=== PATIENT | female | born 1990 | race Caucasian/White ===

== ENCOUNTER 2016-10-27 13:03 | Emergency (ER) | payer OTHER ==
[~2016-10-27] VITALS: Ht 162.6 cm; Wt 60.2 kg
[~2016-10-27 13:03] MED LIST: RITA20TA PO
[2016-10-27 13:10] VITALS: BP 98/62; PULSE 76; RESP 16; TEMP 98.5; O2SAT 99
[2016-10-27] MEDS ORDERED: MIRA33504 PO (15:49)
== END 2016-10-27 13:30 | disposition left against medical advice (07) ==
LOC: PHED 13:03
DX: R10.9 Unspecified abdominal pain (principal); R53.1 Weakness; Z53.21 Procedure and treatment not carried out due to patient leaving prior to being seen by health care provider
CPT/HCPCS: 84703; 99281

== ENCOUNTER 2016-10-27 14:14 | Emergency (ER) | payer OTHER ==
[~2016-10-27] VITALS: Ht 162.6 cm; Wt 60.5 kg
[2016-10-27 14:24] VITALS: BP 100/68; PULSE 90; RESP 16; TEMP 97.8; O2SAT 96
[2016-10-27] MEDS ORDERED: SODIUM CHLOR 0.9% 1000 ML INJ 1,000 ML IV SCH (14:43)
[2016-10-27] MEDS ORDERED: SODIUM CHLORIDE 0.9% FLUSH 5 ML FLUSH IVF PRN ×2 (14:45→15:00)
[2016-10-27] MEDS ORDERED: ONDANSETRON HCL 4 MG/2 ML VIAL IVP ONE (14:45)
[2016-10-27] MEDS ORDERED: KETOROLAC TROMETHAMINE 30 MG/ML (IVP) VIAL IVP ONE (14:45)
[2016-10-27 14:46] VITALS: RESP 16; O2SAT 97
[2016-10-27] MEDS ORDERED: ALUMINUM/MAGNESIUM/SIMETH 30 ML CUP PO ONE (15:00)
--- NOTE | 2016-10-27 15:14 | PD ---
HPI Chief Complaint: Abdominal Pain Time Seen by Provider: 14:35 Travel History International Travel<30 days: No Contact w/Intl Traveler<30days: No Traveled to known affect area: No History of Present Illness HPI Patient 26-year-old female presents emergency department for history of "abdominal numbness". Patient states that she has a history of binge eating when she gets stressed. She states that this morning she ate several loaves of bread and felt like her stomach was going numb. Denies any nausea denies any abdominal pain to me. She states that "I just like my stomach checked out to make sure I haven't damaged it with my binge eating". Patient states he follows with the psychiatrist and has been taking her Adderall as prescribed for her eating disorder. She has stated that she's taken laxatives in the past to help pass her stool which may constitute Tien of bulimia. She denies any dysuria vaginal bleeding vaginal discharge. Patient was here earlier today left without being seen she did have a test prior to leaving and it was negative. PFS Past Medical History ADD: Yes Anxiety: Yes Depression: Yes Psychiatric: Yes Immunizations Current: Yes Tetanus Vaccination: < 5 Years Influenza Vaccination: No ?: Not LMP: states 1 year ago Past Surgical History Surgical History: No Previous Surgery Social History Alcohol Use: No Tobacco Use: No Substance Use: Yes (states smoke "Pot" occas.) Allergies-Medications (Allergen,Severity, Reaction): Coded Allergies: No Known Allergies (Verified , 10/27/16) Reported Meds & Prescriptions Reported Meds & Active Scripts Active Miralax Powder (Polyethylene Glycol 3350 Powder) 17 Gm Powd 17 Gm PO DAILY 7 Days Mix and dissolve one measuring cap-ful (17 grams) in water or juice. Reported Ritalin (Methylphenidate HCl) 20 Mg Tab 20 Mg PO DAILY Review of Systems Except as stated in HPI: all other systems reviewed are Neg Physical Exam Narrative GENERAL: Well-developed well-nourished no apparent distress. SKIN: Warm and dry. HEAD: Atraumatic. Normocephalic. EYES: Pupils equal and round. No scleral icterus. No injection or drainage. ENT: No nasal bleeding or discharge. Mucous membranes pink and moist. NECK: Trachea midline. No JVD. CARDIOVASCULAR: Regular rate and rhythm. No murmur appreciated. RESPIRATORY: No accessory muscle use. Clear to auscultation. Breath sounds equal bilaterally. GASTROINTESTINAL: Abdomen soft, non-tender, nondistended. Hepatic and splenic margins not palpable. No rebound no percussive tenderness. MUSCULOSKELETAL: No obvious deformities. No clubbing. No cyanosis. No edema. NEUROLOGICAL: Awake and alert. No obvious cranial nerve deficits. Motor grossly within normal limits. Normal speech. PSYCHIATRIC: Appropriate mood and affect; insight and judgment normal. Denies suicidal homicidal ideation. Data Data Last Documented VS Vital Signs Date Time Temp Pulse Resp B/P Pulse Ox O2 Delivery O2 Flow Rate FiO2 10/27/16 16:00 16 10/27/16 14:46 97 Room Air 10/27/16 14:24 97.8 90 100/68 Orders Complete Blood Count With Diff (10/27/16 14:43) Comprehensive Metabolic Panel (10/27/16 14:43) Lipase (10/27/16 14:43) Urinalysis - C+S If Indicated (10/27/16 14:43) Iv Access Insert/Monitor (10/27/16 14:43) Ecg Monitoring (10/27/16 14:43) Oximetry (10/27/16 14:43) Ondansetron Inj (Zofran Inj) (10/27/16 14:45) Sodium Chlor 0.9% 1000 Ml Inj (Ns 1000 M (10/27/16 14:43) Sodium Chloride 0.9% Flush (Ns Flush) (10/27/16 14:45) Abdomen, Kub Only (10/27/16 14:43) Ketorolac Inj (Toradol Inj) (10/27/16 14:45) Sodium Chloride 0.9% Flush (Ns Flush) (10/27/16 15:00) Al-Mag Hy-Si 40-40-4 Mg/Ml Liq (Mag-Al P (10/27/16 15:00) Labs Laboratory Tests Test 10/27/16 10/27/16 15:00 15:15 Urine Color STRAW Urine Turbidity CLEAR Urine pH 6.0 Urine Specific [place] 1.002 Urine Protein NEG mg/dL Urine Glucose (UA) NEG mg/dL Urine Ketones NEG mg/dL Urine Occult Blood SMALL Urine Nitrite NEG Urine Bilirubin NEG Urine Leukocyte Esterase NEG Urine RBC 0-3 /hpf Urine WBC 0-2 /hpf Urine Squamous Epithelial 0-5 /hpf Cells Urine Bacteria FEW /hpf Microscopic Urinalysis Comment CULT NOT INDICATED White Blood Count 6.2 TH/MM3 Red Blood Count 4.01 MIL/MM3 Hemoglobin 13.0 GM/DL Hematocrit 37.9 % Mean Corpuscular Volume 94.4 FL Mean Corpuscular Hemoglobin 32.3 PG Mean Corpuscular Hemoglobin 34.3 % Concent Red Cell Distribution Width 13.2 % Platelet Count 246 TH/MM3 Mean Platelet Volume 8.0 FL Neutrophils (%) (Auto) 55.1 % Lymphocytes (%) (Auto) 35.8 % Monocytes (%) (Auto) 7.3 % Eosinophils (%) (Auto) 0.7 % Basophils (%) (Auto) 1.1 % Neutrophils # (Auto) 3.5 TH/MM3 Lymphocytes # (Auto) 2.2 TH/MM3 Monocytes # (Auto) 0.4 TH/MM3 Eosinophils # (Auto) 0.0 TH/MM3 Basophils # (Auto) 0.1 TH/MM3 CBC Comment DIFF FINAL Differential Comment Sodium Level 145 MEQ/L Potassium Level 3.3 MEQ/L Chloride Level 107 MEQ/L Carbon Dioxide Level 29.7 MEQ/L Anion Gap 8 MEQ/L Blood Urea Nitrogen 6 MG/DL Creatinine 0.59 MG/DL Estimat Glomerular Filtration 125 ML/MIN Rate Random Glucose 91 MG/DL Calcium Level 8.3 MG/DL Total Bilirubin 0.5 MG/DL Aspartate Amino Transf 11 U/L (AST/SGOT) Alanine Aminotransferase 22 U/L (ALT/SGPT) Alkaline Phosphatase 39 U/L Total Protein 7.0 GM/DL Albumin 3.9 GM/DL Lipase 234 U/L [facility] Medical Decision Making Medical Screen Exam Complete: Yes Emergency Medical Condition: Yes Differential Diagnosis Bulimia, eating disorder, binge eating, abdominal pain, , gastritis, gastroenteritis, pancreatitis. Narrative Course Patient was roomed emergency department, she appears well in no apparent distress. She does not endorse any abdominal pain but rather states her abdomen feels numb. 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 I highly doubt this is acute abdomen in this patient. Will pursue basic labs including UA CBC CMP and KUB. Anticipate discharge afterwards. Patient was offered pain medicine in status should rather have something for heartburn. She will be given a GI cocktail. Labs (CBC/CMP/Lipase) reassuring. UPT negative from earlier registration today. Patient KUB shows some increase in stool. She is stable for discharge. Diagnosis Primary Impression: Abdominal discomfort Additional Impression: Constipation Med/Other Pt SpecificInfo: Prescription(s) given Scripts Polyethylene Glycol 3350 Powder (Miralax Powder)17 Gm Powd17 Gm PO DAILY 7 Days Ref 0 Mix and dissolve one measuring cap-ful (17 grams) in water or juice. Prov:Jose Martini MD 10/27/16 Disposition: 01 DISCHARGE HOME Condition: Stable Jose Martini MD Oct 27, 2016 15:14
[2016-10-27 15:35] LABS: BLOOD, URINE SMALL (NEG); GLUCOSE,URINE NEG (NEG); KETONE, URINE NEG (NEG); NITRITE,URINE NEG (NEG)
[2016-10-27 15:39] LABS: AUTOMATED NEUTROPHIL # 3.5 TH/MM3 (1.8-7.7); BASOPHIL # 0.1 TH/MM3 (0-0.2); BASOPHIL % 1.1 % (0.0-2.0); EOSINOPHIL % 0.7 % (0.0-4.0); HEMATOCRIT 37.9 % (35.0-46.0); HEMO FLAGS DIFF FINAL; LYMPH % 35.8 % (9.0-44.0); LYMPHOCYTE # 2.2 TH/MM3 (1.0-4.8); MEAN CELL VOLUME 94.4 FL (80.0-100.0); MEAN CORPUSCULAR HEMOGLOBIN 32.3 PG (27.0-34.0); MEAN CORPUSCULAR HGB CONC 34.3 % (32.0-36.0); MONO % 7.3 % (0.0-8.0); NEUT % 55.1 % (16.0-70.0); PLATELET COUNT 246 TH/MM3 (150-450); RED BLOOD COUNT 4.01 MIL/MM3 (4.00-5.30); RED CELL DISTRIBUTION WIDTH 13.2 % (11.6-17.2); WHITE BLOOD COUNT 6.2 TH/MM3 (4.0-11.0)
[2016-10-27 15:40] LABS: URINE COLOR STRAW (YELLW/STRAW)
[2016-10-27 15:41] LABS: RBC, URINE 0-3 /hpf (0-3); SQUAMOUS EPITHELIAL CELL URINE 0-5 /hpf (0-5); WBC, URINE 0-2 /hpf (0-5)
[2016-10-27 15:42] LABS: BACTERIA, URINE FEW /hpf; COMMENT (UR) CULT NOT INDICATED; CULTURE IF INDICATED CULT NOT INDICATED
--- NOTE | 2016-10-27 15:47 | RADHPO ---
EXAM DATE/TIME: 10/27/2016 14:54 [place] COMPARISON: No previous studies available for comparison. INDICATIONS : Abdominal pain and constipation. MEDICAL HISTORY : None. SURGICAL HISTORY : None. ENCOUNTER: Initial ACUITY: 2 weeks PAIN SCORE: 6/10 LOCATION: Bilateral Abdomen FINDINGS: Supine view of the abdomen was performed. A moderate amount of retained stool is present throughout the colon. The abdominal bowel gas pattern is otherwise normal without evidence of ileus or free air. . No abnormal masses, calcifications, or organomegaly is seen. The osseous structures are unremarka ble. CONCLUSION: Retained stool. No evidence of ileus or obstruction. Esteban Cavazos MD on October 27, 2016 at 15:44 Board Certified Radiologist. This report was verified electronically.
[2016-10-27] MEDS ORDERED: MIRA33504 PO (15:49)
[2016-10-27 15:59] LABS: CHLORIDE 107 MEQ/L (98-107); POTASSIUM 3.3 MEQ/L (3.5-5.1); SODIUM (NA) 145 MEQ/L (136-145)
[2016-10-27 16:09] LABS: ANION GAP 8 MEQ/L (5-15); BICARBONATE 29.7 MEQ/L (21.0-32.0); BLOOD UREA NITROGEN 6 MG/DL (7-18)
[2016-10-27 16:10] LABS: ALT (GPT) 22 U/L (10-53); AST (GOT) 11 U/L (15-37); GLOMERULAR FILTRATION RATE 125 ML/MIN (>89)
[2016-10-27 16:11] LABS: TOTAL BILIRUBIN ADULT 0.5 MG/DL (0.2-1.0)
[2016-10-27 16:12] LABS: ALKALINE PHOSPHATASE 39 U/L (45-117)
== END 2016-10-27 16:49 | disposition home or self-care (01) ==
LOC: PHED 14:14
DX: R19.8 Other specified symptoms and signs involving the digestive system and abdomen (principal); K59.00 Constipation, unspecified; Z86.59 Personal history of other mental and behavioral disorders
CPT/HCPCS: 74000; 80053; 81001; 83690; 85025; 99284

== ENCOUNTER 2017-01-06 09:38 | Inpatient (IN) | payer OTHER ==
[2017-01-06] VITALS (10 sets, daily range): BP systolic 96–110; BP diastolic 58–65; PULSE 66–87; RESP 16–20; TEMP 97–97.5; O2SAT 99–100
[~2017-01-06] VITALS: Ht 167.6 cm; Wt 60.0 kg
[~2017-01-06 09:38] MED LIST changes: +MIRA33504 PO
[2017-01-06] MEDS ORDERED: SODIUM CHLOR 0.9% 1000 ML INJ 1,000 ML IV ONE (10:15)
[2017-01-06] MEDS ORDERED: SODIUM CHLORIDE 0.9% FLUSH 10 ML FLUSH IVF PRN (10:15)
--- NOTE | 2017-01-06 10:27 | PD ---
HPI Chief Complaint: OD/ Ingestion Time Seen by Provider: 10:07 Travel History International Travel<30 days: No Contact w/Intl Traveler<30days: No Traveled to known affect area: No History of Present Illness HPI The patient was seen and examined in the presence of the nurse. This patient took an intentional overdose of lithium and Lamictal this morning. She admits to trying to kill herself. She has history of bipolar disorder. Those are her on prescription meds. She is very altered and cannot provide much in the way of useful history or review of systems. It's unclear how many she took and at what time. It was this morning but I don't know a time. Paramedics brought her in. [facility] Past Medical History Bipolar Disorder: Yes ?: Not Social History Alcohol Use: No Tobacco Use: No Substance Use: No (DENIES) Allergies-Medications (Allergen,Severity, Reaction): Coded Allergies: UNOBTAINABLE (Unverified , 01/06/17) Review of Systems ROS Limitations: Clinical Condition, Altered Mental Status, Uncooperative, Poor Historian Physical Exam Narrative GENERAL: Well-nourished, well-developed patient who is drowsy and confused. SKIN: Focused skin assessment reveals no rash and nodules. Skin is Warm and dry. HEAD: Atraumatic. Normocephalic. EYES: Pupils equal and round. No scleral icterus. No injection or drainage. ENT: No nasal bleeding or discharge. Mucous membranes pink and moist. NECK: Trachea midline. No JVD. CARDIOVASCULAR: Regular rate and rhythm. No murmur appreciated. RESPIRATORY: No accessory muscle use. Clear to auscultation. Breath sounds equal bilaterally. GASTROINTESTINAL: Abdomen soft, non-tender, nondistended. Hepatic and splenic margins not palpable. MUSCULOSKELETAL: No obvious deformities. No clubbing. No cyanosis. No edema. NEUROLOGICAL: Awake but confused and drowsy. No obvious cranial nerve deficits. Motor grossly within normal limits. Slurred speech. PSYCHIATRIC: Depressed mood and flat affect; insight and judgment poor . Data Data Last Documented VS Vital Signs Date Time Temp Pulse Resp B/P Pulse Ox O2 Delivery O2 Flow Rate FiO2 01/06/17 11:52 100 01/06/17 11:51 83 16 96/60 Nasal Cannula 4 01/06/17 09:48 97.5 Orders Electrocardiogram (01/06/17 10:07) Complete Blood Count With Diff (5/19/17 10:07) Comprehensive Metabolic Panel (01/06/17 10:07) Iv Access Insert/Monitor (01/06/17 10:07) Cath For Specimen (01/06/17 10:07) Ecg Monitoring (01/06/17 10:07) Oximetry (01/06/17 10:07) Sodium Chloride 0.9% Flush (Ns Flush) (01/06/17 10:15) Call Poison Control (01/06/17 10:07) Drug Screen, Random Urine (01/06/17 10:07) Alcohol (Ethanol) (01/06/17 10:07) Salicylates (Aspirin) (01/06/17 10:07) Tylenol (Acetaminophen) (01/06/17 10:07) Sodium Chlor 0.9% 1000 Ml Inj (Ns 1000 M (01/06/17 10:15) Dish (Li) (01/06/17 10:10) Lactic Acid (01/06/17 10:31) Creatine Kinase (Cpk) (01/06/17 10:25) Electrocardiogram (01/06/17 ) Dish (Li) (01/06/17 12:14) Admit Order (Ed Use Only) (01/06/17 12:29) Labs Laboratory Tests Test 01/06/17 01/06/17 01/06/17 10:25 10:35 10:45 White Blood Count 7.2 TH/MM3 Red Blood Count 3.84 MIL/MM3 Hemoglobin 12.0 GM/DL Hematocrit 36.0 % Mean Corpuscular Volume 93.8 FL Mean Corpuscular Hemoglobin 31.2 PG Mean Corpuscular Hemoglobin 33.2 % Concent Red Cell Distribution Width 14.2 % Platelet Count 211 TH/MM3 Mean Platelet Volume 8.6 FL Neutrophils (%) (Auto) 48.9 % Lymphocytes (%) (Auto) 40.6 % Monocytes (%) (Auto) 9.7 % Eosinophils (%) (Auto) 0.4 % Basophils (%) (Auto) 0.4 % Neutrophils # (Auto) 3.5 TH/MM3 Lymphocytes # (Auto) 2.9 TH/MM3 Monocytes # (Auto) 0.7 TH/MM3 Eosinophils # (Auto) 0.0 TH/MM3 Basophils # (Auto) 0.0 TH/MM3 CBC Comment DIFF FINAL Differential Comment Sodium Level 140 MEQ/L Potassium Level 3.9 MEQ/L Chloride Level 106 MEQ/L Carbon Dioxide Level 24.2 MEQ/L Anion Gap 10 MEQ/L Blood Urea Nitrogen 13 MG/DL Creatinine 0.67 MG/DL Estimat Glomerular Filtration 76 ML/MIN Rate Random Glucose 126 MG/DL Calcium Level 8.8 MG/DL Total Bilirubin 0.3 MG/DL Aspartate Amino Transf 22 U/L (AST/SGOT) Alanine Aminotransferase 40 U/L (ALT/SGPT) Alkaline Phosphatase 33 U/L Total Creatine Kinase 62 U/L Total Protein 6.8 GM/DL Albumin 4.1 GM/DL Salicylates Level LESS THAN 1.7 MG/DL Acetaminophen Level LESS THAN 2.0 MCG/ML Dish Level 0.3 MEQ/L Ethyl Alcohol Level LESS THAN 3 MG/DL Urine Opiates Screen NEG Urine Barbiturates Screen NEG Urine Amphetamines Screen NEG Urine Benzodiazepines Screen NEG Urine Cocaine Screen NEG Urine Cannabinoids Screen NEG Lactic Acid Level 2.5 mmol/L MDM Medical Decision Making Medical Screen Exam Complete: Yes Emergency Medical Condition: Yes Medical Record Reviewed: Yes Differential Diagnosis Intentional overdose, suicidal ideation, lithium toxicity Narrative Course I have reviewed the patient's electronic medical record. IV placed I gave her 1 L normal saline IV bolus On initial evaluation patient is controlling her airway with normal gag reflex and speaking and has saturation 100% on a nasal cannula 4 L Will require frequent re-evaluations to make sure her airway stays controlled Critically ill with serious overdose on lithium and Lamictal We have spoken with poison control CBC is normal Metabolic profile is normal LFTs are normal is negative Toxicology screen is negative Alcohol level is negative Tylenol is negative Aspirin is negative Dish level is 0.3 on the initial level. I have just sent a second level to make sure it is not rising CK is normal Lactate is elevated at 2.5 I reviewed her EKG which shows sinus rhythm but no ST elevation or ectopy Extended cardiac monitoring reveals sinus rhythm without ectopy Patient critically ill with toxic encephalopathy due to intentional overdose Patient too altered to have useful psychiatric screening at this time I have made multiple rechecks of this patient At this point she is controlling her airway I spoke with both her parents Calls been placed to hospitalist for telemetry admission I request a sitter and they will be needing psychiatry consultation Diagnosis Primary Impression: Toxic encephalopathy Additional Impression: Intentional lithium overdose Qualified Code: T56.892A - Intentional lithium overdose, initial encounter Admitting Information Admitting Physician Requests: Admit Luis Cat MD January 06, 2017 10:27
[2017-01-06 10:52] LABS: AUTOMATED NEUTROPHIL # 3.5 TH/MM3 (1.8-7.7); BASOPHIL % 0.4 % (0.0-2.0); EOSINOPHIL % 0.4 % (0.0-4.0); HEMO FLAGS DIFF FINAL; LYMPH % 40.6 % (9.0-44.0); LYMPHOCYTE # 2.9 TH/MM3 (1.0-4.8); MEAN CELL VOLUME 93.8 FL (80.0-100.0); MEAN CORPUSCULAR HEMOGLOBIN 31.2 PG (27.0-34.0); MEAN CORPUSCULAR HGB CONC 33.2 % (32.0-36.0); MONO % 9.7 % (0.0-8.0); NEUT % 48.9 % (16.0-70.0); PLATELET COUNT 211 TH/MM3 (150-450); RED BLOOD COUNT 3.84 MIL/MM3 (4.00-5.30); RED CELL DISTRIBUTION WIDTH 14.2 % (11.6-17.2); WHITE BLOOD COUNT 7.2 TH/MM3 (4.0-11.0)
[2017-01-06 11:15] LABS: ACETAMINOPHEN LESS THAN 2.0 MCG/ML (10.0-30.0); ALT (GPT) 40 U/L (10-53); ANION GAP 10 MEQ/L (5-15); AST (GOT) 22 U/L (15-37); BICARBONATE 24.2 MEQ/L (21.0-32.0); BLOOD UREA NITROGEN 13 MG/DL (7-18); CHLORIDE 106 MEQ/L (98-107); GLOMERULAR FILTRATION RATE 76 ML/MIN (>89); POTASSIUM 3.9 MEQ/L (3.5-5.1); SODIUM (NA) 140 MEQ/L (136-145)
[2017-01-06 11:16] LABS: ALKALINE PHOSPHATASE 33 U/L (45-117); TOTAL BILIRUBIN ADULT 0.3 MG/DL (0.2-1.0)
[2017-01-06 11:20] LABS: CREATINE KINASE 62 U/L (26-192)
[2017-01-06 11:21] LABS: AMPHETAMINE, URINE NEG (NEG); BARBITURATES, URINE NEG (NEG); COCAINE, URINE NEG (NEG)
[2017-01-06] MEDS ORDERED: LAMO25 PO (16:01)
[2017-01-06] MEDS ORDERED: LITH150C PO (16:01)
[2017-01-06] MEDS: SODIUM CHLOR 0.9% 1000 ML INJ 1,000 ML IV SCH ×2 (16:20→17:43)
--- NOTE | 2017-01-06 17:10 | HHI.HP ---
HPI Service [facility] Hospitalists Primary Care Physician Dr. Ranjit Canales Admission Diagnosis intentional OD Chief Complaint: Intentional OD Travel History International Travel<30 Days: No Contact w/Intl Traveler <30 Da: No Traveled to Known Affected Are: No History of Present Illness Ms. Piper Ricardo is a 26 y/o WF with hx of ADHD and OCD with an associated binge eating disorder according to outpt records. Pt was brought into the ED at [facility] on 01/06/17 for an intentional overdose of lithium and Lamictal this morning. She admitted to the ED physician that she was trying to kill herself. Pt was just recently prescribed the Lamictal 25mg on 01/04, 60 tablets and she reportedly took the entire bottle. Pt reportedly took 2 OTC [place] pills as well. The pts mother was present at the time of the examination as the pt was unable to provide any meaningful history. The pt was very altered and speaking very erratically with pressured and disorganized thinking and repeatedly asking if she had said things out loud which she hadn't said. Pt periodically very tearful. In review of outpt records pt has been having a lot of intrusive thoughts which she reportedly tries to control with eating. Pt had been on Vyvanse for ADHD up until 5 days ago. Pts mother is very concerned as the pt has never expressed symptoms like this in the past. She has reportedly been somewhat depressed and emotional over the last several weeks and this was the reason for the Lamictal prescription. Pts lithium levels were low. Her labs at admission are stable. 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 Pts parents are both [facility] pharmacists Physical Exam Vital Signs Vital Signs Date Time Temp Pulse Resp B/P Pulse Ox O2 Delivery O2 Flow Rate FiO2 01/06/17 14:31 87 20 110/60 100 Nasal Cannula 2 01/06/17 13:11 84 18 99/63 100 Nasal Cannula 4 01/06/17 11:52 100 01/06/17 11:51 83 16 96/60 100 Nasal Cannula 4 01/06/17 11:11 83 16 100/65 100 Nasal Cannula 4 01/06/17 10:33 82 18 108/65 100 Nasal Cannula 4 01/06/17 09:55 88 Nasal Cannula 2 01/06/17 09:48 97.5 69 16 107/65 99 Physical Exam GENERAL: This is a well-nourished, well-developed patient, appears somewhat manic, very pressured and disorganized thoughts and language, very tearful and then will be laughing. HEENT: Atraumatic. Normocephalic. No temporal or scalp tenderness. No scleral icterus. Airway patent. NECK: Trachea midline, supple, nontender. CARDIO: Regular. RESP: CTA bilaterally. No wheezes, rales, or rhonchi. ABD: +BS, soft, non-tender, nondistended. EXT: Extremities without clubbing, cyanosis, or edema. NEURO: Awake and alert. Motor and sensory grossly within normal limits. Normal speech. Laboratory Laboratory Tests Test 01/06/17 01/06/17 01/06/17 01/06/17 10:25 10:35 10:45 12:20 White Blood Count 7.2 Red Blood Count 3.84 Hemoglobin 12.0 Hematocrit 36.0 Mean Corpuscular Volume 93.8 Mean Corpuscular Hemoglobin 31.2 Mean Corpuscular Hemoglobin 33.2 Concent Red Cell Distribution Width 14.2 Platelet Count 211 Mean Platelet Volume 8.6 Neutrophils (%) (Auto) 48.9 Lymphocytes (%) (Auto) 40.6 Monocytes (%) (Auto) 9.7 Eosinophils (%) (Auto) 0.4 Basophils (%) (Auto) 0.4 Neutrophils # (Auto) 3.5 Lymphocytes # (Auto) 2.9 Monocytes # (Auto) 0.7 Eosinophils # (Auto) 0.0 Basophils # (Auto) 0.0 CBC Comment DIFF FINAL Differential Comment Sodium Level 140 Potassium Level 3.9 Chloride Level 106 Carbon Dioxide Level 24.2 Anion Gap 10 Blood Urea Nitrogen 13 Creatinine 0.67 Estimat Glomerular Filtration 76 Rate Random Glucose 126 Calcium Level 8.8 Total Bilirubin 0.3 Aspartate Amino Transf 22 (AST/SGOT) Alanine Aminotransferase 40 (ALT/SGPT) Alkaline Phosphatase 33 Total Creatine Kinase 62 Total Protein 6.8 Albumin 4.1 Salicylates Level LESS THAN 1.7 Acetaminophen Level LESS THAN 2.0 [place] Level 0.3 0.3 Ethyl Alcohol Level LESS THAN 3 Urine Opiates Screen NEG Urine Barbiturates Screen NEG Urine Amphetamines Screen NEG Urine Benzodiazepines Screen NEG Urine Cocaine Screen NEG Urine Cannabinoids Screen NEG Lactic Acid Level 2.5 Result Diagram: 01/06/17 1025 01/06/17 1025 Septic Shock Reassessment Heart: Regular rate and rhythm Lungs: Clear Skin: Warm Peripheral Pulses: Bounding Right Radial Bounding Left Radial Bounding Right Popliteal Bounding Left Popliteal Bounding Right Dorsalis Pedis Bounding Left Dorsalis Pedis Bounding Right Posterior Tibial Bounding Left Posterior Tibial Assessment and Plan Problem List: (1) Drug overdose, intentional Status: Acute Plan: - 26 y/o WF with hx of ADHD and possible previous diagnosis of OCD with an associated binge eating disorder and Bipolar disorder according to outpt records. - Pt was brought into the ED at [facility] on 01/06/17 for an intentional overdose of lithium and Lamictal this morning, she admitted to the ED physician that she was trying to kill herself. - Pt was just recently prescribed the Lamictal 25mg on 01/04, 60 tablets and she reportedly took the entire bottle. Pt reportedly took 2 OTC [place] pills as well. - Pt is being admitted to the medical floor for monitoring and once medically stable she will be taken to the Psych unit. - Labs at admission were stable. - EKG was NSR - [place] level checked twice and is low - UDS is negative. Ethyl alcohol level negative. Salicylated and Tylenol level low. - Psychiatry has been consulted, the case was discussed between Dr. Giron and Dr. Cassidy. - Check beta HCG - Check TSH/Free T4 - IVF - Telemetry - Neuro checks - Repeat labs in AM - Supportive care - DVT prophylaxis Physician Certification 2 Midnight Certification Type: Admission for Inpatient Services Order for Inpatient Services The services are ordered in accordance with Medicare regulations or non- Medicare payer requirements, as applicable. In the case of services not specified as inpatient-only, they are appropriately provided as inpatient services in accordance with the 2-midnight benchmark. Estimated LOS (days): 2 2 days is the estimated time the patient will need to remain in the hospital, assuming treatment plan goals are met and no additional complications. Post-Hospital Plan: Not yet determined Problem Qualifiers (1) Drug overdose, intentional: Qualified Code: T50.902A - Drug overdose, intentional, initial encounter Remedios Perez January 06, 2017 17:10
[2017-01-06 17:46] LABS: BETA HCG QUANT LESS THAN 1 MIU/ML (0-5); FREE T4 1.25 NG/DL (0.76-1.46)
--- NOTE | 2017-01-06 20:54 | EKG ---
Date Performed: 01/06/2017 Time Performed: 09:51:55 PTAGE: 89 years EKG: Sinus rhythm NORMAL ECG INTERPRETATION BASED ON A DEFAULT AGE OF 42 YEARS NO PREVIOUS TRACING DOCTOR: Rashawn Nunes Interpretating Date/Time 02/15/2017 14:16:24
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
[2017-01-07 00:25] VITALS: BP 96/64; PULSE 82; RESP 18; TEMP 96; O2SAT 100
[2017-01-07 03:57] VITALS: BP 92/45; PULSE 74; RESP 18; TEMP 96.3; O2SAT 100
[2017-01-07 05:33] VITALS: BP 93/59
[2017-01-07 07:11] LABS: AUTOMATED NEUTROPHIL # 3.7 TH/MM3 (1.8-7.7); BASOPHIL % 0.6 % (0.0-2.0); EOSINOPHIL # 0.2 TH/MM3 (0-0.4); EOSINOPHIL % 2.9 % (0.0-4.0); HEMATOCRIT 33.6 % (35.0-46.0); HEMO FLAGS DIFF FINAL; LYMPH % 32.5 % (9.0-44.0); LYMPHOCYTE # 2.1 TH/MM3 (1.0-4.8); MEAN CELL VOLUME 94.2 FL (80.0-100.0); MEAN CORPUSCULAR HEMOGLOBIN 32.8 PG (27.0-34.0); MEAN CORPUSCULAR HGB CONC 34.9 % (32.0-36.0); MONO % 7.2 % (0.0-8.0); NEUT % 56.8 % (16.0-70.0); PLATELET COUNT 182 TH/MM3 (150-450); RED BLOOD COUNT 3.57 MIL/MM3 (4.00-5.30); RED CELL DISTRIBUTION WIDTH 14.5 % (11.6-17.2); WHITE BLOOD COUNT 6.5 TH/MM3 (4.0-11.0)
[2017-01-07 07:36] LABS: ALKALINE PHOSPHATASE 34 U/L (45-117); ALT (GPT) 28 U/L (10-53); ANION GAP 7 MEQ/L (5-15); AST (GOT) 13 U/L (15-37); BICARBONATE 23.6 MEQ/L (21.0-32.0); BLOOD UREA NITROGEN 5 MG/DL (7-18); CHLORIDE 113 MEQ/L (98-107); GLOMERULAR FILTRATION RATE 125 ML/MIN (>89); SODIUM (NA) 144 MEQ/L (136-145); TOTAL BILIRUBIN ADULT 0.3 MG/DL (0.2-1.0)
[2017-01-07 08:00] VITALS: BP 91/54; PULSE 84; RESP 16; TEMP 97.2; O2SAT 100
--- NOTE | 2017-01-07 09:35 | HHI.DCPOC ---
Discharge Care Plan Diagnosis: (1) Drug overdose, intentional (2) Toxic encephalopathy Goals to Promote Your Health * To prevent worsening of your condition and complications * To maintain your health at the optimal level Directions to Meet Your Goals Take your medications as prescribed Follow your dietary instruction Follow activity as directed Keep your appointments as scheduled Take your immunizations and boosters as scheduled If your symptoms worsen call your PCP, if no PCP go to Urgent Care Center or Emergency Room Smoking is Dangerous to Your Health. Avoid second hand smoke Call the 24-hour hour crisis hotline for domestic abuse at Chidi Cassidy MD January 07, 2017 09:35
[2017-01-07 09:41] VITALS: PULSE 85
--- NOTE | 2017-01-07 09:46 | HHI.PR ---
Subjective Remarks emotionally labile...crying the laughing. hungry. cooperative. Objective Vitals heent neg lung cta abd s/nt ext no edema nystagmus Vital Signs Date Time Temp Pulse Resp B/P Pulse Ox O2 Delivery O2 Flow Rate FiO2 01/07/17 08:00 97.2 84 16 91/54 100 01/07/17 05:33 93/59 01/07/17 03:57 96.3 74 18 92/45 100 01/07/17 00:25 96.0 82 18 96/64 100 01/06/17 20:15 66 01/06/17 20:14 97.1 71 18 102/58 100 01/06/17 17:00 97.0 77 18 104/59 100 01/06/17 14:31 87 20 110/60 100 Nasal Cannula 2 01/06/17 13:11 84 18 99/63 100 Nasal Cannula 4 01/06/17 11:52 100 01/06/17 11:51 83 16 96/60 100 Nasal Cannula 4 01/06/17 11:11 83 16 100/65 100 Nasal Cannula 4 01/06/17 10:33 82 18 108/65 100 Nasal Cannula 4 01/06/17 09:55 88 Nasal Cannula 2 01/06/17 09:48 97.5 69 16 107/65 99 01/06/17 01/06/17 01/07/17 15:00 23:00 07:00 Intake Total 800 ml 860 ml Balance 800 ml 860 ml Intake Oral 60 ml IV Total 800 ml 800 ml # Voids 1 Result Diagram: 01/07/17 0641 01/07/17 0641 A/P Problem List: (1) Drug overdose, intentional Status: Acute Plan: - 26 y/o WF with hx of ADHD and possible previous diagnosis of OCD with an associated binge eating disorder and Bipolar disorder according to outpt records. - Pt was brought into the ED at [facility] on 01/06/17 for an intentional overdose of lithium and Lamictal this morning, she admitted to the ED physician that she was trying to kill herself. - Pt was just recently prescribed the Lamictal 25mg on 01/04, 60 tablets and she reportedly took the entire bottle. Pt reportedly took 2 OTC [place] pills as well. - Pt is being admitted to the medical floor for monitoring and once medically stable she will be taken to the Psych unit. - Labs at admission were stable. - EKG was NSR - [place] level checked twice and is low - UDS is negative. Ethyl alcohol level negative. Salicylated and Tylenol level low. - Psychiatry has been consulted, the case was discussed between Dr. Giron and Dr. Cassidy. - Check beta HCG - Check TSH/Free T4...nml - IVF - Telemetry nsr overnight. - Neuro checks stable improving - Repeat labs stable d/c to psych unit today. medically stable Problem Qualifiers (1) Drug overdose, intentional: Qualified Code: T50.902A - Drug overdose, intentional, initial encounter Chidi Cassidy MD January 07, 2017 09:46
--- NOTE | 2017-01-07 16:04 | EKG ---
Date Performed: 01/06/2017 Time Performed: 12:32:52 PTAGE: 89 years EKG: Sinus rhythm BORDERLINE RIGHT AXIS DEVIATION LOW QRS VOLTAGE IN PRECORDIAL LEADS BORDERLINE ECG PREVIOUS TRACING 01/06/2017 @ 09.51.55 DOCTOR: Mignon Melchor Interpretating Date/Time 02/15/2017 14:16:00
== END 2017-01-07 12:11 | DRG 917 ==
LOC: NEPE 09:38 → NEDA 12:33 → EDBD 12:33 → MERGE 12:33 → HOCB 16:46
PROVIDERS: ADMIT Hospitalist; ATTEND Hospitalist
DX: T56.892A Toxic effect of other metals, intentional self-harm, initial encounter (principal); G92 Toxic encephalopathy; F31.9 Bipolar disorder, unspecified; F42.9 Obsessive-compulsive disorder, unspecified; F90.9 Attention-deficit hyperactivity disorder, unspecified type; T42.6X2A Poisoning by other antiepileptic and sedative-hypnotic drugs, intentional self-harm, initial encounter; Y92.9 Unspecified place or not applicable
CPT/HCPCS: 80053; 80178; 80307; 82550; 83605; 84439; 84443; 84702; 85025; 93005; J7030

== ENCOUNTER 2017-01-07 12:42 | Inpatient (IN) | payer OTHER ==
[~2017-01-07] VITALS: Ht 162.6 cm; Wt 68.8 kg
[~2017-01-07 12:42] MED LIST changes: +LAMO25 PO; +LITH150C PO
[2017-01-07 14:08] VITALS: BP 103/55; PULSE 110; RESP 18; TEMP 97; O2SAT 100
[2017-01-07 16:35] VITALS: BP 140/73; PULSE 83; RESP 18; TEMP 98.4; O2SAT 100
--- NOTE | 2017-01-07 17:02 | MH ---
cc: MELANIE SKINNER DATE OF ADMISSION 01/07/2017 HISTORY This 26-year-old white female was initially admitted to the medical floor through the emergency room because of overdose on Lamictal and eyun-kos-uuiayxc lithium. She was seen by me in consultation per request of Dr. Cassidy. Please refer to my consultation report for details. She was transferred to the psychiatric unit once medically stabilized. Prior to evaluation case was discussed with the nursing staff who indicated since admission she has been seclusive, very labile, i.e. laughing and then bursting into tears. She has not exhibited any aggressive or self-destructive behavior nor has she made any threats of harm to self or others. At the time of this evaluation, she was not as sedated as when I saw her last night. She was able to provide more information. She acknowledged taking more than the prescribed dose of Vyvanse, i.e. 80 milligrams a day instead of the 40 milligrams per day prescribed to her. She mentioned that it happened on "a couple of occasions." She mentioned that she has been hearing "voices" since she broke up with her last boyfriend about a year ago. She mentioned the voices tell her to "eat poop". She again was vague about the circumstances leading to the suicide attempt, "I do not remember, I guess I was upset about something." When asked as to how she felt about the overdose she hesitated and responded "not too good." She denied any previous suicide attempts. She repeatedly requested that she be given medicine to stabilize her and to "get rid of the voices." I discussed my diagnostic impression and treatment approach at length with her and she was receptive. PAST PSYCHIATRIC HISTORY/PAST MEDICAL HISTORY/FAMILY HISTORY/PERSONAL HISTORY Please refer to my consultation note for details. CLINICAL OBSERVATION/MENTAL STATUS EXAMINATION Well-groomed might female who was more communicative today compared to last night. She remains quite labile. Her responses to questions were relevant. No overt anger or hostility was noticed. No bizarre behavior or mannerisms were noticed. Her speech was soft, monotonous. Her affect was labile, predominantly depressed. Subjectively she described her mood as "I have been feeling down, I go up and down." Thought processes did not reveal any looseness of association or flight of ideas. No manisha delusions were noticed. However, she acknowledged experiencing auditory hallucinations telling her to "eat poop." However, she denied any intention to act on them. She denied any suicidal or homicidal ideations or intent at this time. She denied any previous suicide attempts. Cognitively, she was alert, oriented to time, place, person and situation. Memory, immediate she could do 5 digits forward, 4 digits backward. Recent, she could recall 2/3 objects after 5 minutes. Remote, she could recall president to President Brett Aguirre. Her attention and concentration was impaired. She could do serial sevens up to 86. Her judgment and insight was felt to be fair. DIAGNOSTIC IMPRESSION [place] I: Bipolar affective disorder, mixed. Status post overdose Lamictal and lithium. Obsessive compulsive disorder by history. Bulimia by history. Attention deficit hyperactivity disorder by history. 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 [place] III: No diagnosis. [place] IV: Severity of psychosocial stressors moderate, i.e. stress related to college, breakup with boyfriend. [place] V: Current GAF score 30. FORMULATION AND TREATMENT PLAN Please refer to my consultation report for details. She will be started on Depakote and Risperdal. The risks, benefits and alternatives were explained to her and she understood and was supportive. Simultaneously, she will be involved in individual psychotherapy primarily focusing on current psychosocial stressors. She will participate in various other unit activities i.e. occupational therapy, recreational therapy, group therapy. HER IDENTIFIED PROBLEMS 1. Mood swings. 2. Psychosis NOS. 3. Obsessive-compulsive behavior. ASSETS 1. She is verbal. 2. Reasonably good physical health. Her estimated length of stay is 5-7 days. MD ERNA Machuca/SPENCER /4:28 PM /4:39 PM
[2017-01-07] MEDS: DIVALPROEX SODIUM E.R. 500 MG TAB PO SCH (20:36)
[2017-01-08 05:59] VITALS: BP 93/52; PULSE 83; RESP 16; TEMP 96.3; O2SAT 96
[2017-01-08] MEDS ORDERED: PNEUMOCOCCAL POLYVALENT INJ 25 MCG/0.5 ML SYR IM ONE (10:00)
[2017-01-08] MEDS ORDERED: INFLUENZA VIRUS VACCINE (QUADRIVALENT) 0.5 ML SYR IM ONE (10:00)
[2017-01-08] MEDS: DIVALPROEX SODIUM E.R. 500 MG TAB PO SCH (20:20)
[2017-01-08 21:21] VITALS: BP 92/54; PULSE 93; RESP 18; TEMP 97; O2SAT 98
[2017-01-09 06:01] VITALS: BP 91/51; PULSE 85; RESP 18; TEMP 97.8; O2SAT 98
[2017-01-09] MEDS: DIVALPROEX SODIUM E.R. 500 MG TAB PO SCH ×2 (21:21→22:01)
[2017-01-09 22:02] VITALS: BP 101/50; PULSE 89; RESP 18; TEMP 98.7; O2SAT 98
[2017-01-10] MEDS: TEMAZEPAM 15 MG CAP PO PRN ×2 (00:44→21:00)
[2017-01-10 05:43] VITALS: BP 102/55; PULSE 97; RESP 18; TEMP 97.4; O2SAT 99
[2017-01-10 18:03] VITALS: BP 95/52; PULSE 102; RESP 17; TEMP 98.2; O2SAT 99
[2017-01-11] MEDS: DIVALPROEX SODIUM E.R. 500 MG TAB PO SCH (01:07)
[2017-01-11 05:11] VITALS: BP 104/50; PULSE 86; RESP 18; TEMP 98.4; O2SAT 100
[2017-01-11 07:46] LABS: BASOPHIL # 0.1 TH/MM3 (0-0.2); BASOPHIL % 0.9 % (0.0-2.0); EOSINOPHIL # 0.3 TH/MM3 (0-0.4); EOSINOPHIL % 5.5 % (0.0-4.0); HEMATOCRIT 38.1 % (35.0-46.0); HEMO FLAGS DIFF FINAL; LYMPH % 36.4 % (9.0-44.0); LYMPHOCYTE # 2.2 TH/MM3 (1.0-4.8); MEAN CELL VOLUME 94.5 FL (80.0-100.0); MEAN CORPUSCULAR HEMOGLOBIN 31.7 PG (27.0-34.0); MEAN CORPUSCULAR HGB CONC 33.5 % (32.0-36.0); MONO % 7.9 % (0.0-8.0); NEUT % 49.3 % (16.0-70.0); PLATELET COUNT 172 TH/MM3 (150-450); RED BLOOD COUNT 4.03 MIL/MM3 (4.00-5.30); RED CELL DISTRIBUTION WIDTH 14.4 % (11.6-17.2); WHITE BLOOD COUNT 6.1 TH/MM3 (4.0-11.0)
[2017-01-11 08:24] LABS: ALT (GPT) 38 U/L (10-53); ANION GAP 7 MEQ/L (5-15); BICARBONATE 32.6 MEQ/L (21.0-32.0); BLOOD UREA NITROGEN 14 MG/DL (7-18); CHLORIDE 102 MEQ/L (98-107); GLOMERULAR FILTRATION RATE 116 ML/MIN (>89); POTASSIUM 4.4 MEQ/L (3.5-5.1); SODIUM (NA) 142 MEQ/L (136-145)
[2017-01-11 08:34] LABS: ALKALINE PHOSPHATASE 41 U/L (45-117); AST (GOT) 16 U/L (15-37); TOTAL BILIRUBIN ADULT 0.3 MG/DL (0.2-1.0)
[2017-01-11 18:15] VITALS: BP 104/57; PULSE 98; RESP 18; TEMP 97.5; O2SAT 98
[2017-01-11] MEDS: TEMAZEPAM 15 MG CAP PO PRN (21:29)
[2017-01-12 05:30] VITALS: BP 104/52; PULSE 70; RESP 16; TEMP 96.8; O2SAT 98
[2017-01-12 18:00] VITALS: BP 100/62; PULSE 78; RESP 18; TEMP 97; O2SAT 98
[2017-01-12] MEDS: TEMAZEPAM 15 MG CAP PO PRN (21:19)
[2017-01-12] MEDS: DIVALPROEX SODIUM E.R. 500 MG TAB PO SCH (21:19)
[2017-01-13 06:27] VITALS: BP 89/51; PULSE 91; RESP 16; TEMP 97; O2SAT 97
[2017-01-13] MEDS ORDERED: REST15CA PO (12:28)
[2017-01-13] MEDS ORDERED: RISP0.5T28 PO (12:28)
[2017-01-13] MEDS ORDERED: DEPA500T3 PO (12:28)
--- NOTE | 2017-01-13 13:11 | MD ---
cc: MELANIE SKINNER M.D. ADMISSION DATE: 01/07/2017 DISCHARGE DATE: 01/13/2017 [place] Visit Search.Discharge Date ADMISSION DIAGNOSIS [place] I: Bipolar affective disorder mixed. Status post overdose on Lamictal and lithium. Obsessive-compulsive disorder by history. Bulimia by history. Attention deficit hyperactive disorder by history. 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 [place] III: No diagnosis. [place] IV: Severity of psychosocial stressors moderate, i.e., stress related to college, breakup with boyfriend. [place] V: Current GAF score 30. DISCHARGE DIAGNOSES [place] I: Bipolar affective disorder mixed. Status post overdose on Lamictal and lithium. Obsessive-compulsive disorder by history. Bulimia by history. Attention deficit hyperactive disorder by history. 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 [place] III: No diagnosis. [place] IV: Severity of psychosocial stressors moderate, i.e., stress related to college, breakup with boyfriend. [place] V: Current GAF score 60. BRIEF HISTORY This 26-year-old white female was initially admitted to the medical floor because of overdose on Lamictal and lqgr-grx-qffcvfn lithium. She was seen by me in consultation per the request of Dr. Cassidy and after she was medically stabilized she was transferred to the psychiatric unit under my service. Please refer to my initial consult for details. LABORATORY DATA CBC with differential unremarkable. CMP on 01/11/2017 was unremarkable; specifically her liver enzymes were normal. Plasma valproic acid on 01/11/2017 was 61. HOSPITAL COURSE When initially evaluated she was very labile, i.e., laughing and then bursting into tears and displayed circumstantiality. In subsequent individual psychotherapy session she acknowledged experiencing "voices" mostly centering on food. She certainly did not exhibit any behavior indicative of her experiencing auditory hallucinations and as such the validity of these was somewhat questionable. Throughout this hospital stay she overemphasized her "food addiction." She was not observed binging or purging by the staff. It appears that she tends to deal with any psychosocial stressor by engaging in overeating. She was encouraged to attend Over Eaters Anonymous support group after discharge and to work on this particular issue with her outpatient therapist. Should this not help then consideration could be given to admission to an eating disorder unit. To stabilize her mood and to help her with so-called "voices" she was started on Depakote and Risperdal. The lability and hyperverbosity responded well to this combination. She complained of insomnia and as such Restoril was added. She gradually began to gain insight in regards to identified issues especially the suicide attempt. She recognized it was a "selfish act." I had a meeting with both parents and invited them to the treatment team meeting which her father was able to attend. The patient's condition and discharge plans were reviewed at length and they were all very supportive of it. Specifically, the patient wanted to be discharged as according to her being around other people eating triggered obsessive thoughts about food. Throughout this hospital stay she did not exhibit any aggressive or self-destructive behavior. As such the treatment team felt she had received optimum benefit out of this admission and could be discharged. At the time of discharge she is denying any suicidal or homicidal ideations. She is not exhibiting any acute psychotic symptoms. Her lability has subsided. She is being discharged with recommendation to continue individual psychotherapy with Kadi Paula at [facility] and with Dr. Ralph on 01/18/2017. She is also recommended to follow-up with her primary care physician for any medical issues. DISCHARGE MEDICATIONS 1. Depakote ER 500 mg p.o. q.h.s., #10. 2. Risperdal 0.5 mg p.o. b.i.d., #20. 3. Restoril 30 mg p.o. q.h.s. p.r.n. for insomnia, #5. She is recommended to have CMP, CBC with differential and plasma valproic acid on 01/17/2017. Reports of these are to be sent to Dr. Ralph, her outpatient psychiatrist and to her primary care physician. MD ERNA Machuca/DAXA /12:33 PM /12:52 PM
== END 2017-01-13 18:30 | disposition home or self-care (01) | DRG 885 ==
LOC: MERGE 12:42 → H260 12:42
PROVIDERS: ADMIT Psychiatry & Neurology Psychiatry; ATTEND Psychiatry & Neurology Psychiatry
DX: F31.60 Bipolar disorder, current episode mixed, unspecified (principal); F42.9 Obsessive-compulsive disorder, unspecified; Z86.59 Personal history of other mental and behavioral disorders; F90.9 Attention-deficit hyperactivity disorder, unspecified type; F60.4 Histrionic personality disorder; F60.3 Borderline personality disorder; G47.00 Insomnia, unspecified; Z91.5 Personal history of self-harm; Z23 Encounter for immunization
CPT/HCPCS: 80053; 80164; 85025; 90732

== ENCOUNTER 2017-09-19 16:17 | Inpatient (IN) | payer OTHER ==
[~2017-09-19] VITALS: Ht 162.6 cm; Wt 65.6 kg
[~2017-09-19 16:17] MED LIST changes: +DEPA500T3 PO; -LAMO25 PO; -LITH150C PO; +REST15CA PO; +RISP0.5T28 PO
[2017-09-19 16:20] VITALS: BP 109/57; PULSE 87; RESP 17; TEMP 98.7; O2SAT 100
[2017-09-19 17:54] LABS: AUTOMATED NEUTROPHIL # 5.1 TH/MM3 (1.8-7.7); BASOPHIL % 0.5 % (0.0-2.0); EOSINOPHIL % 0.3 % (0.0-4.0); HEMATOCRIT 39.4 % (35.0-46.0); HEMOGLOBIN 13.6 GM/DL (11.6-15.3); LYMPH % 35.5 % (9.0-44.0); LYMPHOCYTE # 3.2 TH/MM3 (1.0-4.8); MEAN CELL VOLUME 92.3 FL (80.0-100.0); MEAN CORPUSCULAR HEMOGLOBIN 31.8 PG (27.0-34.0); MEAN CORPUSCULAR HGB CONC 34.5 % (32.0-36.0); MEAN PLATELET VOLUME 8.4 FL (7.0-11.0); MONO % 6.3 % (0.0-8.0); MONOCYTE # 0.6 TH/MM3 (0-0.9); NEUT % 57.4 % (16.0-70.0); PLATELET COUNT 239 TH/MM3 (150-450); RED BLOOD COUNT 4.27 MIL/MM3 (4.00-5.30); WHITE BLOOD COUNT 8.9 TH/MM3 (4.0-11.0)
[2017-09-19 18:13] LABS: BACTERIA, URINE FEW /hpf; BILIRUBIN, URINE NEG (NEG); BLOOD, URINE TRACE (NEG); GLUCOSE,URINE NEG (NEG); KETONE, URINE NEG (NEG); NITRITE,URINE NEG (NEG); SQUAMOUS EPITHELIAL CELL URINE 2 /hpf (0-5); URINE COLOR LIGHT-YELLOW (YELLW/STRAW); URINE LEUKOCYTE ESTERASE MOD (NEG)
[2017-09-19 18:14] LABS: ALBUMIN 4.4 GM/DL (3.4-5.0); AST (GOT) 10 U/L (15-37); BICARBONATE 28.3 MEQ/L (21.0-32.0); BLOOD UREA NITROGEN 7 MG/DL (7-18); CALCIUM 9.1 MG/DL (8.5-10.1); CHLORIDE 103 MEQ/L (98-107); CREATININE 0.56 MG/DL (0.50-1.00); GLOMERULAR FILTRATION RATE 132 ML/MIN (>89); GLUCOSE,RANDOM 86 MG/DL (74-106); SODIUM (NA) 137 MEQ/L (136-145)
[2017-09-19 18:15] LABS: ALT (GPT) 10 U/L (10-53)
[2017-09-19 18:24] LABS: ALKALINE PHOSPHATASE 46 U/L (45-117); TOTAL BILIRUBIN ADULT 0.6 MG/DL (0.2-1.0); TOTAL PROTEIN 7.4 GM/DL (6.4-8.2)
--- NOTE | 2017-09-19 21:30 | PD ---
HPI Chief Complaint: Psychiatric Symptoms Time Seen by Provider: 21:30 Travel History International Travel<30 days: No Contact w/Intl Traveler<30days: No Traveled to known affect area: No History of Present Illness HPI 27-year-old female presents to emergency department for psychiatric evaluation. Patient reports that she has been having worsening auditory hallucinations. They have been telling her to harm others during fits of rage. Patient states that associated with these hallucinations or thoughts of hurting herself. Patient has had an intentional overdose in the past on her home medications. Currently patient denies any illicit drug use. States that she has used in the past to help medicate herself. Patient reports no other medical history this time. [facility] Past Medical History ADD: Yes Asthma: Yes Autoimmune Disease: No Bipolar Disorder: Yes Anxiety: Yes Depression: Yes Cancer: No Cardiovascular Problems: No Diabetes: No Endocrine: No Genitourinary: No Immune Disorder: No Musculoskeletal: No Neurologic: No Psychiatric: Yes (patient was admitted in [place] for having psychotic break) Reproductive: No Respiratory: No Immunizations Current: Yes Thyroid Disease: No ?: Not Social History Alcohol Use: No Tobacco Use: No Substance Use: Yes (MARIJAUNA) Allergies-Medications (Allergen,Severity, Reaction): Coded Allergies: egg (Unverified Allergy, Unknown, 04/04/17) Reported Meds & Prescriptions Reported Meds & Active Scripts Active Restoril (Temazepam) 15 Mg Cap 30 Mg PO HS PRN Risperdal M-Tab (Risperidone) 0.5 Mg Tab 0.5 Mg PO BID Depakote ER (Divalproex Sodium) 500 Mg Deepak 500 Mg PO HS Miralax Powder (Polyethylene Glycol 3350 Powder) 17 Gm Powd 17 Gm PO DAILY 7 Days Mix and dissolve one measuring cap-ful (17 grams) in water or juice. Reported Geodon (Ziprasidone) 40 Mg Cap 40 Mg PO DAILY@1600 Ritalin (Methylphenidate HCl) 20 Mg Tab 20 Mg PO DAILY Review of Systems Except as stated in HPI: all other systems reviewed are Neg Physical Exam Narrative GENERAL: Well-nourished, well-developed female patient in no acute distress. SKIN: Focused skin assessment reveals no rash and nodules. Skin is Warm and dry. HEAD: Atraumatic. Normocephalic. EYES: Pupils equal and round. No scleral icterus. No injection or drainage. ENT: No nasal bleeding or discharge. Mucous membranes pink and moist. NECK: Trachea midline. No JVD. CARDIOVASCULAR: Regular rate and rhythm. No murmur appreciated. RESPIRATORY: No accessory muscle use. Clear to auscultation. Breath sounds equal bilaterally. GASTROINTESTINAL: Abdomen soft, non-tender, nondistended. Hepatic and splenic margins not palpable. MUSCULOSKELETAL: No obvious deformities. No clubbing. No cyanosis. No edema. NEUROLOGICAL: Awake but confused and drowsy. No obvious cranial nerve deficits. Motor grossly within normal limits. Normal speech. PSYCHIATRIC: Depressed mood and flat affect; insight and judgment poor Data Data Last Documented VS Vital Signs Date Time Temp Pulse Resp B/P (MAP) Pulse Ox O2 Delivery O2 Flow Rate FiO2 09/19/17 16:20 98.7 87 17 109/57 (74) 100 Orders Orders Complete Blood Count With Diff (09/19/17 16:38) Comprehensive Metabolic Panel (09/19/17 16:38) Thyroid Stimulating Hormone (09/19/17 16:38) Urinalysis - C+S If Indicated (09/19/17 16:38) Ed Urine Pregnancytest Poc (09/19/17 16:38) Psych Screen (09/19/17 16:38) Drug Screen, Random Urine (09/19/17 16:38) Alcohol (Ethanol) (09/19/17 16:38) Admit Order (Ed Use Only) (09/19/17 ) Labs Laboratory Tests Test 09/19/17 17:35 White Blood Count 8.9 TH/MM3 Red Blood Count 4.27 MIL/MM3 Hemoglobin 13.6 GM/DL Hematocrit 39.4 % Mean Corpuscular Volume 92.3 FL Mean Corpuscular Hemoglobin 31.8 PG Mean Corpuscular Hemoglobin Concent 34.5 % Red Cell Distribution Width 13.0 % Platelet Count 239 TH/MM3 Mean Platelet Volume 8.4 FL Neutrophils (%) (Auto) 57.4 % Lymphocytes (%) (Auto) 35.5 % Monocytes (%) (Auto) 6.3 % Eosinophils (%) (Auto) 0.3 % Basophils (%) (Auto) 0.5 % Neutrophils # (Auto) 5.1 TH/MM3 Lymphocytes # (Auto) 3.2 TH/MM3 Monocytes # (Auto) 0.6 TH/MM3 Eosinophils # (Auto) 0.0 TH/MM3 Basophils # (Auto) 0.0 TH/MM3 CBC Comment DIFF FINAL Differential Comment Urine Color LIGHT-YELLOW Urine Turbidity CLEAR Urine pH 7.0 Urine Specific [place] 1.006 Urine Protein NEG mg/dL Urine Glucose (UA) NEG mg/dL Urine Ketones NEG mg/dL Urine Occult Blood TRACE Urine Nitrite NEG Urine Bilirubin NEG Urine Urobilinogen LESS THAN 2.0 MG/DL Urine Leukocyte Esterase MOD Urine RBC 1 /hpf Urine WBC 1 /hpf Urine Squamous Epithelial Cells 2 /hpf Urine Bacteria FEW /hpf Microscopic Urinalysis Comment CULT NOT INDICATED Blood Urea Nitrogen 7 MG/DL Creatinine 0.56 MG/DL Random Glucose 86 MG/DL Total Protein 7.4 GM/DL Albumin 4.4 GM/DL Calcium Level 9.1 MG/DL Alkaline Phosphatase 46 U/L Aspartate Amino Transf (AST/SGOT) 10 U/L Alanine Aminotransferase (ALT/SGPT) 10 U/L Total Bilirubin 0.6 MG/DL Sodium Level 137 MEQ/L Potassium Level 4.0 MEQ/L Chloride Level 103 MEQ/L Carbon Dioxide Level 28.3 MEQ/L Anion Gap 6 MEQ/L Estimat Glomerular Filtration Rate 132 ML/MIN Thyroid Stimulating Hormone 3rd Gen 0.691 uIU/ML Beta HCG, Qualitative LESS THAN 1 MIU/ML Urine Opiates Screen NEG Urine Barbiturates Screen NEG Valproic Acid (Depakene) Level LESS THAN 3 MCG/ML Urine Amphetamines Screen NEG Urine Benzodiazepines Screen NEG Urine Cocaine Screen NEG Urine Cannabinoids Screen NEG Ethyl Alcohol Level LESS THAN 3 MG/DL MDM Medical Decision Making Medical Screen Exam Complete: Yes Emergency Medical Condition: Yes Medical Record Reviewed: Yes Differential Diagnosis Mood disorder versus personality disorder versus adjustment reaction disorder Narrative Course 27-year-old female presents emergency department for psychiatric evaluation. Patient appears without distress. Vital signs are stable. Lab work is reviewed without acute concern. Patient is medically cleared to undergo psychiatric screening for further evaluation and disposition. Mental health screening discussed with the patient. Psychiatric screen ordered. Diagnosis Primary Impression: Auditory hallucinations Additional Impression: Suicidal thoughts Condition: Stable Aurora Fleming Sep 19, 2017 21:30
[2017-09-19] MEDS ORDERED: ALUMINUM/MAGNESIUM/SIMETH 30 ML CUP PO PRN (22:00)
[2017-09-19] MEDS ORDERED: ACETAMINOPHEN 325 MG TAB PO PRN (22:00)
[2017-09-19] MEDS ORDERED: BENZTROPINE MESYLATE 2 MG/2 ML VIAL IM PRN (22:00)
[2017-09-19] MEDS ORDERED: BENZTROPINE MESYLATE 1 MG TAB PO PRN (22:00)
[2017-09-19] MEDS ORDERED: MAGNESIUM HYDROXIDE SUSP 30 ML CUP PO PRN (22:00)
[2017-09-19] MEDS ORDERED: diphenhydrAMINE HCL 50 MG CAP PO PRN (22:00)
[2017-09-19] MEDS ORDERED: LORazepam 1 MG TAB PO PRN (22:00)
[2017-09-19] MEDS ORDERED: NICOTINE 21 MG/24 HR PATCH T-DERMAL PRN (22:00)
[2017-09-19] MEDS ORDERED: LORazepam 2 MG/ML VIAL IM PRN (22:00)
[2017-09-19] MEDS ORDERED: ZIPR40 PO (22:34)
[2017-09-19 23:05] VITALS: BP 106/51; PULSE 76; RESP 16; TEMP 98.4; O2SAT 100
[2017-09-20 06:00] VITALS: BP 102/59; PULSE 65; RESP 16; TEMP 97.9; O2SAT 98
[2017-09-20 12:54] LABS: CHOLESTEROL 144 MG/DL (120-200)
[2017-09-20 12:56] LABS: CHOLESTEROL/ HDL RATIO 2.81 RATIO; HDL CHOLESTEROL 51.1 MG/DL (40.0-60.0); LDL CHOLESTEROL 79 MG/DL (0-99); TRIGLYCERIDES 70 MG/DL (42-150)
[2017-09-20 16:25] LABS: HEMOGLOBIN A1C 5.1 % (4.3-6.0)
--- NOTE | 2017-09-20 17:24 | HHI.HP ---
Provisional Diagnosis Admission Date Sep 19, 2017 at 21:54 [place] I. Bipolar disorder Certification of Person's Competence To Provide Express and Informed Consent I have personally examined Piper Ricardo , a person being served at [facility] on, Sep 20, 2017 17:24. Express and informed consent means consent voluntarily given in writing, by a competent person, after sufficient explanation and disclosure of the subject matter involved to enable the person to make a knowing and willful decision without any element of force, fraud, deceit, duress, or other form of constraint or coercion. This person is 18 years of age or older, is not now known to be incompetent to consent to treatment with a guardian advocate, and does not have a health care surrogate or proxy currently making medical treatment decisions. I have found this person to be one of the following: [x] Competent to provide express and informed consent, as defined above, for voluntary admission to this facility and is competent to provide express and informed consent for treatment. He/she has the consistent capacity to make well reasoned, willful, and knowing decisions concerning his or her medical or mental health treatment. The person fully and consistently understands the purpose of the admission for examination/placement and is fully capable of personally exercising all rights assured [place] Incompetent to provide express and informed consent to voluntary admission, and this is incompetent to provide express and informed consent to treatment. The person must be transferred to involuntary status and a petition for a guardian advocate filed with the Circuit Court. [] Refusing to provide express and informed consent to voluntary admission but is competent to provide express and informed consent for treatment. The person must be discharged or transferred to involuntary status. Form shall be completed within 24 hours of a person's arrival at the receiving facility and filed in the clinical record of each person: 1. Admitted on a voluntary basis 2. Permitted to provide express and informed consent to his/her own treatment 3. Allowed to transfer from involuntary to voluntary status 4. Prior to permitting a person to consent to his or her own treatment after having been previously found incompetent to consent to treatment. History of Present Illness Capacity: Has Capacity HPI Patient is a 27-year-old woman, single, domiciled with parents, recently became unemployed, with past psychiatric history of bipolar disorder, 2 prior psychiatric admissions, last in February here at [facility] under the care of Dr. Zimmerman, 3 previous suicide attempts, history of self-injurious behavior via cutting who came in voluntarily due to worsening auditory hallucinations commanding her to hurt others along with suicidal ideations. Patient was seen sitting in hospital bed, cooperative interview today. Patient states that for the past month she had stopped her medications and in that time had attempted to move out of her home which she has been verbally back in with her parents house, tried to get a new relationship, quit her employ, and did not adhere to follow-up with her outpatient providers. Patient states that she had been experiencing resurgence of auditory hallucinations of God as well as at times having visual hallucinations, reporting feeling worsening depression along with thoughts of not wanting to be alive and thoughts of overdosing on medications prior to her admission. Patient states that 2 days ago she had difficulty driving home due to hallucinations as well as thoughts of wanting to end her life which she had gone to her grandparents business location in [place] her brother about how she had been feeling and was brought to the hospital to next day for evaluation. Patient states that recently she had been feeling overwhelmed and that if she was at home she "would've killed myself". Patient reports having the auditory hallucinations to be disturbing and interfering with her daily function. Patient states that she has had 3 unsuccessful jobs to so beginning of this year and attributes to an effective treatment regimen as well as having stopped her medications due to feeling sedated from ( psychotic. Patient states that currently she feels "stable but haunted", denies any auditory hallucinations at time of interview, continued to have thoughts of not wanting to be alive at this time but hopeful that she will be able to be on a regimen that will be helpful and have her be able to keep a job and maintain some independence economically. Family psychiatric history: Mother with bipolar disorder, father with ADHD, grandfather with Alzheimer's. No suicides in the family Past psychiatric history: Previous psychiatric diagnoses of bipolar disorder, 2 previous psychiatric admissions, last being in February at [facility] under the care of Dr. Zimmerman, 3 previous suicide attempts, history of self-injurious behavior via cutting (none recently), outpatient providers Dr. Ralph at [facility] whom she has been following up with since January 2017 last seen 1 week ago prior to her admission. Previous medication trials include Abilify, Saphris, Geodon, and stimulants for ADHD. Patient denies history of abuse. Past medical history: Denies Allergies: Adderall and eggs Social history: Single, no children, domicile the parents, recently unemployed, no legal history. Collateral contacts: Julien and Nolvia Ricardo (parents) [phone] Review of Systems Except as stated in HPI: all other systems reviewed are Neg Past Psych History Psychological trauma history Denies Violence risk - others (6 mos) Low Violence risk - self (6 mos) Elevated due to recent suicide ideations as well as history of suicide attempts or self-injurious behavior. Substance Abuse History Drugs/Alcohol past 12 months Denies Past Family Social History Coded Allergies: egg (Unverified Allergy, Unknown, 04/04/17) Active Scripts Temazepam (Restoril) 15 Mg Cap, 30 MG PO HS Y for INSOMNIA, #5 CAP Prov:Chad Giron MD 01/13/17 Risperidone Odt (Risperdal M-Tab) 0.5 Mg Tab, 0.5 MG PO BID for Psychosis, #20 TAB Prov:Chad Giron MD 01/13/17 Divalproex ER (Depakote ER) 500 Mg Deepak, 500 MG PO HS for Control Mood Swing, # 10 TAB Prov:Chad Giron MD 01/13/17 Polyethylene Glycol 3350 Powder (Miralax Powder) 17 Gm Powd, 17 GM PO DAILY for Constipation for 7 Days, BOTTLE 0 Refills Mix and dissolve one measuring cap-ful (17 grams) in water or juice. Prov:Jose Martini MD 10/27/16 Reported Medications Ziprasidone (Geodon) 40 Mg Cap, 40 MG PO DAILY@1600, #60 CAP 0 Refills 09/19/17 Ritalin (Ritalin) 20 Mg Tab, 20 MG PO DAILY 06/28/10 Current Medications Medications (Trade) Dose Ordered Sig/Gosia Route Start Time Stop Time Status Last Admin (Benadryl) 50 mg HS PRN PO 09/19/17 22:00 Future Hold (Tylenol) 650 mg Q4H PRN PO 09/19/17 22:00 (Milk Of Magnesia Liq) 30 ml DAILY PRN PO 09/19/17 22:00 (Mag-Al Plus Susp Liq) 30 ml Q6H PRN PO 09/19/17 22:00 (Habitrol 21 Mg Patch.24 Hr) 1 patch DAILY PRN T-DERMAL 09/19/17 22:00 (Cogentin) 1 mg Q12H PRN PO 09/19/17 22:00 Future Hold (Cogentin Inj) 1 mg Q12H PRN IM 09/19/17 22:00 Future Hold Miscellaneous Information 1 HS T-DERMAL 09/20/17 21:00 (ZyPREXA) 5 mg HS PO 09/20/17 21:00 (Atarax) 50 mg Q6H PRN PO 09/20/17 16:15 Family Psych History Mother with bipolar disorder, father with ADHD, grandfather with Alzheimer's. No suicides in the family Social History Single, no children, domicile the parents, recently unemployed, no legal history. Patient's Strengths (min. 2) Verbal and communicative Physical Exam Patient not noted to be in acute distress, no gross motor abnormalities, no tremors or EPS, no noted psychomotor retardation or agitation. Vital Signs Vital Signs Date Time Temp Pulse Resp B/P (MAP) Pulse Ox O2 Delivery O2 Flow Rate FiO2 09/20/17 06:00 97.9 65 16 102/59 (73) 98 Lab Results Labs reviewed Test 09/19/17 17:35 09/20/17 10:20 White Blood Count 8.9 TH/MM3 Red Blood Count 4.27 MIL/MM3 Hemoglobin 13.6 GM/DL Hematocrit 39.4 % Mean Corpuscular Volume 92.3 FL Mean Corpuscular Hemoglobin 31.8 PG Mean Corpuscular Hemoglobin Concent 34.5 % Red Cell Distribution Width 13.0 % Platelet Count 239 TH/MM3 Mean Platelet Volume 8.4 FL Neutrophils (%) (Auto) 57.4 % Lymphocytes (%) (Auto) 35.5 % Monocytes (%) (Auto) 6.3 % Eosinophils (%) (Auto) 0.3 % Basophils (%) (Auto) 0.5 % Neutrophils # (Auto) 5.1 TH/MM3 Lymphocytes # (Auto) 3.2 TH/MM3 Monocytes # (Auto) 0.6 TH/MM3 Eosinophils # (Auto) 0.0 TH/MM3 Basophils # (Auto) 0.0 TH/MM3 CBC Comment DIFF FINAL Differential Comment Urine Color LIGHT-YELLOW Urine Turbidity CLEAR Urine pH 7.0 Urine Specific [place] 1.006 Urine Protein NEG mg/dL Urine Glucose (UA) NEG mg/dL Urine Ketones NEG mg/dL Urine Occult Blood TRACE Urine Nitrite NEG Urine Bilirubin NEG Urine Urobilinogen LESS THAN 2.0 MG/DL Urine Leukocyte Esterase MOD Urine RBC 1 /hpf Urine WBC 1 /hpf Urine Squamous Epithelial Cells 2 /hpf Urine Bacteria FEW /hpf Microscopic Urinalysis Comment CULT NOT INDICATED Blood Urea Nitrogen 7 MG/DL Creatinine 0.56 MG/DL Random Glucose 86 MG/DL Total Protein 7.4 GM/DL Albumin 4.4 GM/DL Calcium Level 9.1 MG/DL Alkaline Phosphatase 46 U/L Aspartate Amino Transf (AST/SGOT) 10 U/L Alanine Aminotransferase (ALT/SGPT) 10 U/L Total Bilirubin 0.6 MG/DL Sodium Level 137 MEQ/L Potassium Level 4.0 MEQ/L Chloride Level 103 MEQ/L Carbon Dioxide Level 28.3 MEQ/L Anion Gap 6 MEQ/L Estimat Glomerular Filtration Rate 132 ML/MIN Thyroid Stimulating Hormone 3rd Gen 0.691 uIU/ML Beta HCG, Qualitative LESS THAN 1 MIU/ML Urine Opiates Screen NEG Urine Barbiturates Screen NEG Valproic Acid (Depakene) Level LESS THAN 3 MCG/ML Urine Amphetamines Screen NEG Urine Benzodiazepines Screen NEG Urine Cocaine Screen NEG Urine Cannabinoids Screen NEG Ethyl Alcohol Level LESS THAN 3 MG/DL Triglycerides Level 70 MG/DL Cholesterol Level 144 MG/DL LDL Cholesterol 79 MG/DL HDL Cholesterol 51.1 MG/DL Cholesterol/HDL Ratio 2.81 RATIO Mental Status Examination Appearance: Appropriate Consciousness: Alert Orientation: x4 Motor Activity: Normal gait Speech: Unremarkable Language: Adequate Fund of Knowledge: Adequate Attention and Concentration: Adequate Memory: Unremarkable Mood: Sad Affect: Sad, Anxious Thought Process & Associations: Linear Hallucination Type: Auditory (command type telling her to kill herself) Suicidal Ideation: Yes Suicidal Plan: No Suicidal Intention: No Homicidal Ideation: No Homicidal Plan: No Homicidal Intention: No Insight: Fair Judgment: Impulsive Assessment & Plan Problem List: (1) Bipolar disorder ICD Codes: F31.9 - Bipolar disorder, unspecified Assessment & Plan Estimated LOS: 5-7 days. Patient is a 27 year woman who carries diagnosis of bipolar disorder, previous psychiatric admissions, multiple suicide attempts as well as self-injurious behavior who came in voluntarily due to worsening auditory hallucinations as well as suicidal ideations in the context of medication nonadherence and noted decrease in function secondary to her symptomatology. We will start patient on olanzapine 5 mg by mouth at bedtime with upper titration for psychosis. We'll consider adding antidepressant once tolerability is established with olanzapine. Continue to monitor mood and behavior on unit. fabric worker leader intervention for psychosocial assessment as well as individual/group therapy. Continue to encourage patient to maintain personal hygiene and participate in groups and activities while the unit. Patient currently on voluntary status. Discharge planning in progress Discharge Planning To be determined. Campbell Calvert MD Sep 20, 2017 17:24
[2017-09-20 19:23] VITALS: BP 116/66; PULSE 64; RESP 18; TEMP 98.1; O2SAT 98
[2017-09-20] MEDS: OLANZapine 5 MG TAB PO SCH (20:57)
[2017-09-20] MEDS: hydrOXYzine HCL 50 MG TAB PO PRN (20:58)
[2017-09-20] MEDS: REMOVE OLD NICOTINE PATCH T-DERMAL SCH (20:59)
[2017-09-21 05:28] VITALS: BP 99/53; PULSE 82; RESP 18; TEMP 98.1; O2SAT 98
--- NOTE | 2017-09-21 13:01 | HHI.PYPN ---
Subjective Remarks Patient seen for follow, chart reviewed. Discussed measures have reported the patient endorsed auditory hallucinations of God talking to her, no behavioral disturbances last evening patient slept. Patient is found lying in hospital bed , cooperative today. Patient states that she had auditory hallucinations last evening which didn't last long but telling her to say and do things that his "unlikely". Patient states that she is being drinking well, slept well last night and denies any adverse drug reaction from medications at this time. The patient continues to report feeling somewhat depressed not having any suicidal ideations at this time. Review of Systems Except as stated in HPI: all other systems reviewed are Neg Mental Status Examination Appearance: Appropriate Consciousness: Alert Orientation: x4 Motor Activity: Normal gait Speech: Unremarkable Language: Adequate Fund of Knowledge: Adequate Attention and Concentration: Adequate Memory: Unremarkable Mood: Sad Affect: Anxious Thought Process & Associations: Linear Thought Content: Hallucinations Hallucination Type: Auditory (command type ) Delusion Type: Bizarre Suicidal Ideation: Yes (denies today) Suicidal Plan: No Suicidal Intention: No Homicidal Ideation: No Homicidal Plan: No Homicidal Intention: No Insight: Fair Judgment: Impulsive Results Vitals/IOs Vital Signs Date Time Temp Pulse Resp B/P (MAP) Pulse Ox O2 Delivery O2 Flow Rate FiO2 09/21/17 05:28 98.1 82 18 99/53 (68) 98 Intake and Output 09/21/17 09/21/17 09/22/17 08:00 16:00 00:00 Intake Total 240 ml 120 ml Balance 240 ml 120 ml Assessment & Plan Problem List: (1) Bipolar disorder ICD Codes: F31.9 - Bipolar disorder, unspecified Assessment & Plan Estimated LOS: 5-7 days. Patient this time continues to have depressed mood, and also continues with auditory hallucinations command type with intrusive thoughts due to the command auditory hallucinations. We'll increase olanzapine to 2.5 mg a.m./5 mg at bedtime. We'll start fluoxetine 20 mg daily for depressive symptoms. Continue monitor mood and behavior. We'll attempt to contact patient's brother Wang Ricardo [phone] as he is requesting information on how his sister is doing which patient provided consent to discuss her care. Continue to encourage patient to participate in groups and activities and maintain personal hygiene needed. Discharge planning in progress Justification for Cont. Inpt. At risk for further decompensation at lower level of care Discharge Planning Patient returned back to her residence with psychiatrically stable Campbell Calvert MD Sep 21, 2017 13:01
[2017-09-21] MEDS: FLUoxetine HCL 20 MG CAP PO SCH (14:20)
[2017-09-21] MEDS: OLANZapine 2.5 MG TAB PO SCH (14:21)
[2017-09-21 17:38] VITALS: BP 111/58; PULSE 75; RESP 16; TEMP 97.4; O2SAT 99
[2017-09-21] MEDS: REMOVE OLD NICOTINE PATCH T-DERMAL SCH (20:58)
[2017-09-21] MEDS: OLANZapine 5 MG TAB PO SCH (20:58)
[2017-09-22 06:03] VITALS: BP 104/71; PULSE 62; RESP 16; TEMP 97.8; O2SAT 98
[2017-09-22] MEDS: FLUoxetine HCL 20 MG CAP PO SCH (09:26)
[2017-09-22] MEDS: OLANZapine 2.5 MG TAB PO SCH (09:26)
[2017-09-22] MEDS: INFLUENZA VIRUS VACCINE (QUADRIVALENT) 0.5 ML SYR IM ONE ×2 (10:00→10:15)
[2017-09-22] MEDS ORDERED: PNEUMOCOCCAL POLYVALENT INJ 25 MCG/0.5 ML SYR IM ONE (10:00)
--- NOTE | 2017-09-22 15:11 | HHI.PYPN ---
Subjective Remarks Patient seen for follow-up, chart reviewed. Discussion she staff reported the patient had endorsed auditory hallucinations when she is feeling stressed has a mostly in bed today. Patient was found lying in bed asleep was able to wake up for interview today. Patient states that she has been feeling "drained" but reports her mood as being "okay" although feeling occasionally depressed and having had suicidal ideations to the at lunch but was brief. Patient also reports at times having intrusive thoughts occasionally. Patient denies any auditory hallucinations at time of interview and feels that it will be a better day today. Patient encouraged to participate in group and activities on the unit during the day which she agreed to. Review of Systems Except as stated in HPI: all other systems reviewed are Neg Mental Status Examination Appearance: Disheveled Consciousness: Alert Orientation: x4 Motor Activity: Normal gait Speech: Unremarkable Language: Adequate Fund of Knowledge: Adequate Attention and Concentration: Adequate Memory: Unremarkable Mood: Sad Affect: Anxious Thought Process & Associations: Linear Thought Content: Hallucinations Hallucination Type: Auditory (command type ) Delusion Type: Bizarre Suicidal Ideation: Yes (endorsed earlier today) Suicidal Plan: No Suicidal Intention: No Homicidal Ideation: No Homicidal Plan: No Homicidal Intention: No Insight: Fair Judgment: Impulsive Results Vitals/IOs Vital Signs Date Time Temp Pulse Resp B/P (MAP) Pulse Ox O2 Delivery O2 Flow Rate FiO2 09/22/17 06:03 97.8 62 16 104/71 (82) 98 Intake and Output 09/22/17 09/22/17 09/23/17 08:00 16:00 00:00 Intake Total 480 ml Balance 480 ml Assessment & Plan Problem List: (1) Bipolar disorder ICD Codes: F31.9 - Bipolar disorder, unspecified Assessment & Plan Patient at this time continues to have depressed mood along with suicidal ideations intermittently as well as intermittent auditory hallucinations have been accompanied by intrusive thoughts. We'll increase olanzapine to 2.5 mg a.m. and 10 mg at bedtime for psychosis. Continue fluoxetine 20 mg by mouth daily depressive symptoms. Continue to monitor mood and behavior. Continue to encourage patient to maintain personal hygiene and participate in groups and activities while on the unit. Discharge planning in progress Justification for Cont. Inpt. At risk for further decompensation if at lower level of care Discharge Planning Patient to return back to her residence once psychiatrically stable. Campbell Calvert MD Sep 22, 2017 15:10
[2017-09-22 18:00] VITALS: BP 126/56; PULSE 79; RESP 16; TEMP 98.2; O2SAT 98
[2017-09-22] MEDS: hydrOXYzine HCL 50 MG TAB PO PRN (18:13)
[2017-09-22] MEDS: REMOVE OLD NICOTINE PATCH T-DERMAL SCH (21:00)
[2017-09-22] MEDS: OLANZapine 10 MG TAB PO SCH (21:20)
[2017-09-23 06:12] VITALS: BP 97/53; PULSE 86; RESP 20; TEMP 98.2; O2SAT 98
[2017-09-23] MEDS: FLUoxetine HCL 20 MG CAP PO SCH (09:26)
[2017-09-23] MEDS: OLANZapine 2.5 MG TAB PO SCH (09:26)
--- NOTE | 2017-09-23 15:23 | HHI.PYPN ---
Subjective Remarks Patient was seen and case discussed with nursing. Patient is complaining of fleeting suicidal ideation with a plan to overdose on medications once she is outside the hospital. Auditory hallucinations are intermittent and she last heard them this morning to hurt herself. She is able to block them out. She has no intent of doing so. Tolerating her medications well. Behaving well on the unit Mental Status Examination Appearance: Disheveled Consciousness: Alert Orientation: x4 Motor Activity: Normal gait Speech: Unremarkable Language: Adequate Fund of Knowledge: Adequate Attention and Concentration: Adequate Memory: Unremarkable Mood: Sad Affect: Anxious Thought Process & Associations: Linear Thought Content: Hallucinations Hallucination Type: Auditory (command type ) Delusion Type: Bizarre Suicidal Ideation: Yes (endorsed earlier today) Suicidal Plan: Yes (overdose after discharge) Suicidal Intention: No Homicidal Ideation: No Homicidal Plan: No Homicidal Intention: No Insight: Fair Judgment: Impulsive Results Vitals/IOs Vital Signs Date Time Temp Pulse Resp B/P (MAP) Pulse Ox O2 Delivery O2 Flow Rate FiO2 09/23/17 06:12 98.2 86 20 97/53 (68) 98 Intake and Output 09/23/17 09/23/17 09/24/17 08:00 16:00 00:00 Intake Total 240 ml Balance 240 ml Assessment & Plan Problem List: (1) Bipolar disorder ICD Codes: F31.9 - Bipolar disorder, unspecified Assessment & Plan Continue current treatment plan Justification for Cont. Inpt. Patient will decompensate in a less restrictive setting Barry Beaulieu DO Sep 23, 2017 15:23
[2017-09-23] MEDS: hydrOXYzine HCL 50 MG TAB PO PRN (17:35)
[2017-09-23 18:11] VITALS: BP 127/67; PULSE 91; RESP 18; TEMP 97.9; O2SAT 98
[2017-09-23] MEDS: OLANZapine 10 MG TAB PO SCH (20:58)
[2017-09-23] MEDS: REMOVE OLD NICOTINE PATCH T-DERMAL SCH (20:58)
[2017-09-24 05:54] VITALS: BP 98/61; PULSE 85; RESP 16; TEMP 98.2; O2SAT 98
[2017-09-24] MEDS: OLANZapine 2.5 MG TAB PO SCH (10:23)
[2017-09-24] MEDS: FLUoxetine HCL 20 MG CAP PO SCH (10:23)
--- NOTE | 2017-09-24 12:12 | HHI.PYPN ---
Subjective Remarks Patient was seen and case discussed with nursing. Patient is having intermittent nosebleeds today. She says she has a history of this she used to be on Ritalin. He is having auditory hallucinations of her dad. She is not specific and denies that they are command in nature. Her affect remains quite anxious. She has fleeting suicidal ideation with no intent or plan. Mental Status Examination Appearance: Disheveled Consciousness: Alert Orientation: x4 Motor Activity: Normal gait Speech: Unremarkable Language: Adequate Fund of Knowledge: Adequate Attention and Concentration: Adequate Memory: Unremarkable Mood: Sad Affect: Anxious Thought Process & Associations: Linear Thought Content: Hallucinations Hallucination Type: Auditory (command type ) Delusion Type: Bizarre Suicidal Ideation: Yes (endorsed earlier today) Suicidal Plan: No Suicidal Intention: No Homicidal Ideation: No Homicidal Plan: No Homicidal Intention: No Insight: Fair Judgment: Impulsive Results Vitals/IOs Vital Signs Date Time Temp Pulse Resp B/P (MAP) Pulse Ox O2 Delivery O2 Flow Rate FiO2 09/24/17 05:54 98.2 85 16 98/61 (73) 98 Assessment & Plan Problem List: (1) Bipolar disorder ICD Codes: F31.9 - Bipolar disorder, unspecified Assessment & Plan Continue current treatment plan, medical consult placed Justification for Cont. Inpt. Patient would decompensate in a less restrictive setting Barry Beaulieu DO Sep 24, 2017 12:12
--- NOTE | 2017-09-24 15:44 | PD.CONS ---
HPI Service [facility] Hospitalists Consult Requested By Dr. Garcia, Psychiatry Reason for Consult Nose bleeds Primary Care Physician Neo Canales D.O. Diagnoses: History of Present Illness Pt is a pleasant 27 y/o F with h/o bipolar disorder admitted to [facility]. Pt stopped taking her psychiatric medications and developed suicidal ideation with auditory hallucination. Pt is c/o nose bleeds which were witness by psychiatry nurse. Pt has had 3 episode in the last 24 hours. Each episode has been self limiting and resolved spontaneously after holding pressure. Pt denies nose picking. Pt denies any facial trauma. Pt states that she previously had difficulties with nose bleeds when took unknown medications for ADHD. Pt also c/o seeing stars with nose bleed and prior to nose bleeds. Pt denies blurred vision, loss of vision, or VELEZ. Pt denies dizziness, chest pain, palpitations, difficulty ambulating, or falling. Review of Systems Constitutional: DENIES: Diaphoretic episodes, Fatigue, Fever, Weight gain, Weight loss, Chills, Dizziness, Change in appetite, Night Sweats Endocrine: DENIES: Heat/cold intolerance, Polydipsia, Polyuria, Polyphagia Eyes: DENIES: Blurred vision, Diplopia, Eye inflammation, Eye pain, Vision loss , Photosensitivity, Double Vision Ears, nose, mouth, throat: COMPLAINS OF: Epistaxis, DENIES: Tinnitus, Hearing loss, Vertigo, Nasal discharge, Oral lesions, Throat pain, Hoarseness, Ear Pain , Running Nose, Sinus Pain, Toothache, Odynophagia Respiratory: DENIES: Apneas, Cough, Snoring, Wheezing, Hemoptysis, Sputum production, Shortness of breath Cardiovascular: DENIES: Chest pain, Palpitations, Syncope, Dyspnea on Exertion , PND, Lower Extremity Edema, Orthopnea, Claudication Gastrointestinal: DENIES: Abdominal pain, Black stools, Bloody stools, BRB per rectum, Constipation, Diarrhea, GERD, Nausea, Reflux, Vomiting, Difficulty Swallowing, Anorexia Genitourinary: DENIES: Urinary frequency, Urinary incontinence, Urgency, Hematuria, Dysuria, Nocturia Musculoskeletal: DENIES: Joint pain, Muscle aches, Stiffness, Joint Swelling, Back pain, Neck pain Integumentary: DENIES: Abnormal pigmentation, Pruritus, Rash, Nail changes, Breast masses, Breast skin changes, Nipple discharge Hematologic/lymphatic: DENIES: Bruising, Lymphadenopathy Immunologic/allergic: DENIES: Eczema, Urticaria Neurologic: DENIES: Abnormal gait, Headache, Localized weakness, Paresthesias, Seizures, Speech Problems, Tremor, Poor Balance Psychiatric: COMPLAINS OF: Suicidal Ideation, History of Bipolar, DENIES: Anxiety, Confusion, Mood changes, Depression, Hallucinations, Agitation, Homicidal Ideation, Delusions, History of Schizophrenia Past Family Social History Past Medical History ADHD ?OCD Bipolar disorder Binge eating disorder Exercise induced asthma Past Surgical History No reported surgical procedures Reported Medications Reported Meds & Active Scripts Active Restoril (Temazepam) 15 Mg Cap 30 Mg PO HS PRN Risperdal M-Tab (Risperidone) 0.5 Mg Tab 0.5 Mg PO BID Depakote ER (Divalproex Sodium) 500 Mg Deepak 500 Mg PO HS Miralax Powder (Polyethylene Glycol 3350 Powder) 17 Gm Powd 17 Gm PO DAILY 7 Days Mix and dissolve one measuring cap-ful (17 grams) in water or juice. Reported Geodon (Ziprasidone) 40 Mg Cap 40 Mg PO DAILY@1600 Ritalin (Methylphenidate HCl) 20 Mg Tab 20 Mg PO DAILY Allergies: Coded Allergies: egg (Unverified Allergy, Unknown, 04/04/17) Family History Non-contributory Social History Denies any alcohol or tobacco use Pt reports a remote hx of marijuana use She graduated last year from with a bachelors in chemical engineering. Pts parents are both [facility] pharmacists Physical Exam Vital Signs Vital Signs Date Time Temp Pulse Resp B/P (MAP) Pulse Ox O2 Delivery O2 Flow Rate FiO2 09/24/17 05:54 98.2 85 16 98/61 (73) 98 09/23/17 18:11 97.9 91 18 127/67 (87) 98 Physical Exam GENERAL: This is a well-nourished, well-developed patient, in no apparent distress. SKIN: No rashes, ecchymoses or lesions. Cool and dry. HEAD: Atraumatic. Normocephalic. No temporal or scalp tenderness. EYES: Pupils equal round and reactive. Extraocular motions intact. No scleral icterus. No injection or drainage. ENT: Nose without bleeding, purulent drainage or septal hematoma. Throat without erythema, tonsillar hypertrophy or exudate. Uvula midline. Airway patent. NECK: Trachea midline. No JVD or lymphadenopathy. Supple, nontender, no meningeal signs. CARDIOVASCULAR: Regular rate and rhythm without murmurs, gallops, or rubs. RESPIRATORY: Clear to auscultation. Breath sounds equal bilaterally. No wheezes , rales, or rhonchi. GASTROINTESTINAL: Abdomen soft, non-tender, nondistended. No hepato-splenomegaly , or palpable masses. No guarding. MUSCULOSKELETAL: Extremities without clubbing, cyanosis, or edema. No joint tenderness, effusion, or edema noted. No calf tenderness. Negative Homans sign bilaterally. NEUROLOGICAL: Awake and alert. Cranial nerves II through XII intact. Motor and sensory grossly within normal limits. Five out of 5 muscle strength in all muscle groups. Normal speech. Laboratory labs reviewed and essentially WNL Assessment and Plan Problem List: (1) Suicidal ideation ICD Codes: R45.851 - Suicidal ideations Status: Acute Plan: - Pt has h/o bipolar disorder - Defer treatment to Psychiatry - supportive care (2) Epistaxis ICD Codes: R04.0 - Epistaxis Status: Acute Plan: - afrin 2 sprays in each nostril BID x 2d - if continued epistaxis, then consider ENT consult or outpt f/u - repeat CBC in AM - Pt c/o "seeing stars" with nose bleeds with - but also occurring prior to nose bleeds - no dizziness, chest pain, or palpitations - MRI brain (09/12/17) (out patient) study reviewed --> no acute findings. Errol Shields DO Sep 24, 2017 15:44
[2017-09-24] MEDS: hydrOXYzine HCL 50 MG TAB PO PRN (17:53)
[2017-09-24 18:48] VITALS: BP 148/81; PULSE 94; RESP 16; TEMP 97.5; O2SAT 98
[2017-09-24] MEDS: OXYMETAZOLINE HCL 0.05% 15 ML NASAL SPRAY NASAL SCH (20:45)
[2017-09-24] MEDS: OLANZapine 10 MG TAB PO SCH (20:45)
[2017-09-24] MEDS: REMOVE OLD NICOTINE PATCH T-DERMAL SCH (20:48)
[2017-09-25 06:10] VITALS: BP 103/57; PULSE 79; RESP 18; TEMP 98.4; O2SAT 99
[2017-09-25 06:30] LABS: AUTOMATED NEUTROPHIL # 2.8 TH/MM3 (1.8-7.7); BASOPHIL % 0.6 % (0.0-2.0); EOSINOPHIL # 0.1 TH/MM3 (0-0.4); EOSINOPHIL % 1.6 % (0.0-4.0); HEMATOCRIT 36.3 % (35.0-46.0); HEMOGLOBIN 12.7 GM/DL (11.6-15.3); LYMPH % 46.3 % (9.0-44.0); MEAN CELL VOLUME 90.9 FL (80.0-100.0); MEAN CORPUSCULAR HEMOGLOBIN 31.9 PG (27.0-34.0); MEAN PLATELET VOLUME 8.5 FL (7.0-11.0); MONO % 7.4 % (0.0-8.0); MONOCYTE # 0.5 TH/MM3 (0-0.9); NEUT % 44.1 % (16.0-70.0); PLATELET COUNT 196 TH/MM3 (150-450); RED BLOOD COUNT 3.99 MIL/MM3 (4.00-5.30); RED CELL DISTRIBUTION WIDTH 12.9 % (11.6-17.2); WHITE BLOOD COUNT 6.4 TH/MM3 (4.0-11.0)
[2017-09-25 06:52] LABS: BICARBONATE 27.3 MEQ/L (21.0-32.0); CALCIUM 8.1 MG/DL (8.5-10.1); CREATININE 0.61 MG/DL (0.50-1.00); MAGNESIUM 2.2 MG/DL (1.5-2.5)
[2017-09-25] MEDS: OLANZapine 2.5 MG TAB PO SCH (09:13)
[2017-09-25] MEDS: OXYMETAZOLINE HCL 0.05% 15 ML NASAL SPRAY NASAL SCH ×2 (09:13→21:47)
[2017-09-25] MEDS: FLUoxetine HCL 20 MG CAP PO SCH (09:13)
[2017-09-25] MEDS: hydrOXYzine HCL 50 MG TAB PO PRN (18:32)
--- NOTE | 2017-09-25 20:48 | HHI.PYPN ---
Subjective Remarks Patient seen for follow up; chart reviewed. Discussion with nursing staff reported that the patient reported AH, noted with brighter affect and no recurrence of epistaxis. Patient was found in day room, noted to be calm and cooperative with interview. Patient states that the weekend had gone "alright", feels better, no AH recently (last time was yesterday). She states that she feels less depressed "not so much" but feels anxious about her discharge plan. She reports feeling interested in attending [facility] and returning back to work. She continues to endorse less fleeting SI. Review of Systems Except as stated in HPI: all other systems reviewed are Neg Mental Status Examination Appearance: Appropriate Consciousness: Alert Orientation: x4 Motor Activity: Normal gait Speech: Unremarkable Language: Adequate Fund of Knowledge: Adequate Attention and Concentration: Adequate Memory: Unremarkable Mood: Appropriate Affect: Appropriate Thought Process & Associations: Linear Thought Content: Hallucinations Hallucination Type: Auditory (denies) Delusion Type: Bizarre Suicidal Ideation: Yes (fleeting) Suicidal Plan: No Suicidal Intention: No Homicidal Ideation: No Homicidal Plan: No Homicidal Intention: No Insight: Fair Judgment: Impulsive Results Labs labs reviewed Test 09/25/17 05:21 White Blood Count 6.4 TH/MM3 Red Blood Count 3.99 MIL/MM3 Hemoglobin 12.7 GM/DL Hematocrit 36.3 % Mean Corpuscular Volume 90.9 FL Mean Corpuscular Hemoglobin 31.9 PG Mean Corpuscular Hemoglobin Concent 35.0 % Red Cell Distribution Width 12.9 % Platelet Count 196 TH/MM3 Mean Platelet Volume 8.5 FL Neutrophils (%) (Auto) 44.1 % Lymphocytes (%) (Auto) 46.3 % Monocytes (%) (Auto) 7.4 % Eosinophils (%) (Auto) 1.6 % Basophils (%) (Auto) 0.6 % Neutrophils # (Auto) 2.8 TH/MM3 Lymphocytes # (Auto) 3.0 TH/MM3 Monocytes # (Auto) 0.5 TH/MM3 Eosinophils # (Auto) 0.1 TH/MM3 Basophils # (Auto) 0.0 TH/MM3 CBC Comment DIFF FINAL Differential Comment Blood Urea Nitrogen 13 MG/DL Creatinine 0.61 MG/DL Random Glucose 84 MG/DL Calcium Level 8.1 MG/DL Magnesium Level 2.2 MG/DL Sodium Level 141 MEQ/L Potassium Level 4.3 MEQ/L Chloride Level 107 MEQ/L Carbon Dioxide Level 27.3 MEQ/L Anion Gap 7 MEQ/L Estimat Glomerular Filtration Rate 120 ML/MIN Vitals/IOs Vital Signs Date Time Temp Pulse Resp B/P (MAP) Pulse Ox O2 Delivery O2 Flow Rate FiO2 09/25/17 06:10 98.4 79 18 103/57 (72) 99 Intake and Output 09/25/17 09/25/17 09/26/17 08:00 16:00 00:00 Intake Total 240 ml 240 ml Balance 240 ml 240 ml Assessment & Plan Problem List: (1) Bipolar disorder ICD Codes: F31.9 - Bipolar disorder, unspecified Assessment & Plan Patient with noted improved mood, decreased depressed mood, now with fleeting SI ; decreased AH. Continue current treatment. Continue to monitor mood and behavior. Discharge planning in progress. Justification for Cont. Inpt. At risk for further decompensation at lower level of care. Discharge Planning To be determined. Campbell Calvert MD Sep 25, 2017 20:48
[2017-09-25] MEDS: REMOVE OLD NICOTINE PATCH T-DERMAL SCH (21:00)
[2017-09-25] MEDS: OLANZapine 10 MG TAB PO SCH (21:46)
[2017-09-26 06:02] VITALS: BP 91/52; PULSE 80; RESP 16; TEMP 98.2; O2SAT 98
[2017-09-26] MEDS: FLUoxetine HCL 20 MG CAP PO SCH (08:26)
[2017-09-26] MEDS: OLANZapine 2.5 MG TAB PO SCH (08:26)
[2017-09-26] MEDS: OXYMETAZOLINE HCL 0.05% 15 ML NASAL SPRAY NASAL SCH (08:26)
[2017-09-26] MEDS ORDERED: OXYM.05%I NASAL (11:52)
[2017-09-26] MEDS ORDERED: OLAN2.5T7 PO (11:52)
[2017-09-26] MEDS ORDERED: OLAN10TA PO (11:52)
[2017-09-26] MEDS ORDERED: FLUO20CA12 PO (11:52)
--- NOTE | 2017-09-26 12:02 | HHI.DS ---
Psychiatry Discharge Summary Inpatient Psychiatric care?: Yes Advance Directive: No Mental Health AdvanceDirective: No Health Care Proxy: No Admission Admission Date Sep 19, 2017 at 21:54 Admission Diagnosis: (1) Bipolar disorder, current episode depressed, moderate ICD Code: F31.32 - Bipolar disorder, current episode depressed, moderate Brief History Patient is a 27-year-old woman, single, domiciled with parents, recently became unemployed, with past psychiatric history of bipolar disorder, 2 prior psychiatric admissions, last in February here at [facility] under the care of Dr. Zimmerman, 3 previous suicide attempts, history of self-injurious behavior via cutting who came in voluntarily due to worsening auditory hallucinations commanding her to hurt others along with suicidal ideations. Patient was seen sitting in hospital bed, cooperative interview today. Patient states that for the past month she had stopped her medications and in that time had attempted to move out of her home which she has been verbally back in with her parents house, tried to get a new relationship, quit her employ, and did not adhere to follow-up with her outpatient providers. Patient states that she had been experiencing resurgence of auditory hallucinations of God as well as at times having visual hallucinations, reporting feeling worsening depression along with thoughts of not wanting to be alive and thoughts of overdosing on medications prior to her admission. Patient states that 2 days ago she had difficulty driving home due to hallucinations as well as thoughts of wanting to end her life which she had gone to her grandparents business location in [place] her brother about how she had been feeling and was brought to the hospital to next day for evaluation. Patient states that recently she had been feeling overwhelmed and that if she was at home she "would've killed myself". Patient reports having the auditory hallucinations to be disturbing and interfering with her daily function. Patient states that she has had 3 unsuccessful jobs to so beginning of this year and attributes to an effective treatment regimen as well as having stopped her medications due to feeling sedated from ( psychotic. Patient states that currently she feels "stable but haunted", denies any auditory hallucinations at time of interview, continued to have thoughts of not wanting to be alive at this time but hopeful that she will be able to be on a regimen that will be helpful and have her be able to keep a job and maintain some independence economically. Family psychiatric history: Mother with bipolar disorder, father with ADHD, grandfather with Alzheimer's. No suicides in the family Past psychiatric history: Previous psychiatric diagnoses of bipolar disorder, 2 previous psychiatric admissions, last being in February at [facility] under the care of Dr. Zimmerman, 3 previous suicide attempts, history of self-injurious behavior via cutting (none recently), outpatient providers Dr. Ralph at [place] whom she has been following up with since January 2017 last seen 1 week ago prior to her admission. Previous medication trials include Abilify, Saphris, Geodon, and stimulants for ADHD. Patient denies history of abuse. Past medical history: Denies Allergies: Adderall and eggs Social history: Single, no children, domicile the parents, recently unemployed, no legal history. Collateral contacts: Julien and Nolvia Ricardo (parents) [phone] Tobacco Use In Past 30 Days: Cognitive Impairment Alcohol Use: 4 or More Times Per Week Hospital Course Patient's hospital course is uneventful, she was compliant with the medications. Showed some insight into her disease and need for further long- term care and counseling. Is in today with staff she denies suicidality homicidality voices or visions. She states she is awaiting bed placement [facility]. Until then she'll be staying with her grandmother. Patient denies suicidality homicidality voices or visions. At this time patient no longer meets Tsang criteria. Or criteria for inpatient psychiatric hospitalization. She'll be discharged today to herself with Rx 1 month to follow-up with a local private psychiatrist or with the staff piper Sorensen if that occurs first Results Blood Pressure 91 / 52 Vital Signs Date Time Temp Pulse Resp B/P (MAP) Pulse Ox O2 Delivery O2 Flow Rate FiO2 09/26/17 06:02 98.2 80 16 91/52 (65) 98 Laboratory Tests Test 09/25/17 05:21 Red Blood Count 3.99 MIL/MM3 (4.00-5.30) Lymphocytes (%) (Auto) 46.3 % (9.0-44.0) Calcium Level 8.1 MG/DL (8.5-10.1) Laboratory Results Test 09/19/17 17:35 09/20/17 10:20 Valproic Acid (Depakene) Level LESS THAN 3 MCG/ML Cholesterol Level 144 MG/DL (120-200) HDL Cholesterol 51.1 MG/DL (40.0-60.0) Hemoglobin A1c 5.1 % (4.3-6.0) LDL Cholesterol 79 MG/DL (0-99) Triglycerides Level 70 MG/DL (42-150) Summary of Procedures None done Pending results at discharge: No Medications # of Antipsychotic meds at D/C: 1 Approp Antipsych med options 1 - Minimum of three failed multiple trials of monotherapy. 2 - Documented plan to taper to monotherapy due to previous use of multiple meds OR cross-taper in progress at D/C. 3 - Documentation of augmentation of Clozapine. 4 - Justification other than those listed in allowable values 1-3, document here : Discharge Discharge Date: Sep 26, 2017 Discharge Diagnosis: (1) Bipolar disorder, current episode depressed, moderate Diagnosis: Principal ICD Code: F31.32 - Bipolar disorder, current episode depressed, moderate Pt Condition on Discharge: Stable Discharge Disposition: Discharge Home Discharge Instructions Diet Instructions: As Tolerated, No Restrictions Activities you can perform: Regular-No Restrictions Scheduled Appointment: follow-up private psychiatrist Discharge Time > 30 minutes Mental Status Examination Appearance: Appropriate Consciousness: Alert Orientation: x4 Motor Activity: Normal gait Speech: Unremarkable Language: Adequate Fund of Knowledge: Adequate Attention and Concentration: Adequate Memory: Unremarkable Mood: Appropriate Affect: Appropriate Thought Process & Associations: Linear Thought Content: Hallucinations Hallucination Type: Auditory (denies) Delusion Type: Bizarre Suicidal Ideation: Yes (fleeting) Suicidal Plan: No Suicidal Intention: No Homicidal Ideation: No Homicidal Plan: No Homicidal Intention: No Insight: Fair Judgment: Impulsive Discharge/Advance Care Plan Health Problems: (1) Bipolar disorder Goals to promote your health * To prevent worsening of your condition and complications * To maintain your health at the optimal level Directions to meet your goals Take your medications as prescribed Follow your dietary instruction Follow activity as directed Keep your appointments as scheduled Take your immunizations and boosters as scheduled If your symptoms worsen call your PCP, if no PCP go to Urgent Care Center or Emergency Room For 13/03 questions related to your inpatient stay or results of tests pending at discharge, please contact Dr. Joaquín Allison at Smoking is Dangerous to Your Health. Avoid second hand smoking Joaquín Allison MD Sep 26, 2017 12:02
== END 2017-09-26 15:05 | disposition home or self-care (01) | DRG 885 ==
LOC: NEPJ 16:17 → NEDA 21:54 → H260 23:05
PROVIDERS: ADMIT Student in an Organized Health Care Education/Training Program; ATTEND Student in an Organized Health Care Education/Training Program
DX: F31.32 Bipolar disorder, current episode depressed, moderate (principal); R45.851 Suicidal ideations; J45.909 Unspecified asthma, uncomplicated; Z23 Encounter for immunization; Z81.8 Family history of other mental and behavioral disorders; Z82.0 Family history of epilepsy and other diseases of the nervous system; Z91.5 Personal history of self-harm; R04.0 Epistaxis; F90.9 Attention-deficit hyperactivity disorder, unspecified type
CPT/HCPCS: 80048; 80053; 80061; 80164; 80307; 81001; 83036; 83735; 84443; 84703; 85025; 90686; 90732; 99285; Q0163; Q2038

== ENCOUNTER 2018-10-05 09:08 | Inpatient (IN) ==
--- NOTE | 2018-10-05 10:14 | ED ---
HPI General Chief Complaint: Psychiatric Symptoms Stated Complaint: Psych Eval/VCSO Time Seen by Provider: 10/05/18 09:38 Source: police Mode of arrival: other (police) Limitations: no limitations History of Present Illness HPI Narrative: Patient is a 28-year-old female [facility] under [facility] for psychiatric evaluation. Patient states she went to a new therapist this morning and when she began discussing her thoughts the therapist then Trinh acted her. Per the Tsang act report patient has thoughts to hit her head with a baseball bat, pedophilia thoughts towards children intrusive in nature, "grand feelings". Woke up having intrusive thoughts to "chop my mom set up", "I am sure I am possessed with the demon". Recent discharge from [facility] on 10/01/18. On 10/03/18 had thoughts of killing parents. Described as "overwhelming feeling energy flow through my hands". She feels dissociated from her body. It goes on to say patient needs to have further evaluation and treatment for depression, ricarda, thoughts of pedophilia working, OCD. Feels she should be on injectable medication so she cannot use meds to kill herself. Patient states that she has had these thoughts for several years. She has never acted on them. She reports that she has harm obsession. Patient states that these thoughts are intrusive, they cause her anxiety. She states that she has never harmed anyone before even while having these thoughts. She does admit to having 2 previous suicide attempts, most recently approximately a week ago by overdosing on lithium. She states the psychotic "breaks" started in 2015 after she broke up with her boyfriend. She has no physical complaints at this time. complaint: Reports other Related Data Previous Rx's Medication Instructions Recorded buspirone 10 mg PO TID 15 Days #90 tab 10/01/18 fluoxetine 20 mg PO DAILY 15 Days #15 cap 10/01/18 metronidazole 500 mg PO BID 2 Days #3 tab 10/01/18 olanzapine 5 mg PO BID 15 Days #30 tab 10/01/18 Allergies Allergy/AdvReac Type Severity Reaction Status Date / Time egg Allergy Unknown Stomach Verified 10/05/18 09:28 Problem Review of Systems ROS: all other systems reviewed are negative [facility] Medical History Medical History Bipolar disorder (Acute) Delusions (Acute) Multiple-personality disorder (Acute) OCD (obsessive compulsive disorder) (Acute) Surgical History Surgical History No history of previous surgery (Acute) Social History Social History Substance History: Past History Second Hand Smoke Exposure: No Smoking Status: Never smoker How Often Do You Have a Drink Containing Alcohol: Monthly or less Substance Abuse Detail Marijuana: Substance Use Status: Early Remission Route Used Substance Abuse: By Mouth and Inhalation Substance Abuse Comment: CBD flour and smoking. Reason for Use: Calm Down Immunization History Tetanus Immunization: >5 Years Exam Narrative Exam Narrative: GENERAL: Overweight, well-developed, alert female. Presenting in no acute distress. SKIN: Focused skin assessment warm/dry. HEAD: Atraumatic. Normocephalic. EYES: Pupils equal and round. No scleral icterus. No injection or drainage. ENT: No nasal bleeding or discharge. Mucous membranes pink and moist. NECK: Trachea midline. No JVD. CARDIOVASCULAR: Regular rate and rhythm. No murmur appreciated. RESPIRATORY: No accessory muscle use. Clear to auscultation. Breath sounds equal bilaterally. GASTROINTESTINAL: Abdomen soft, non-tender, nondistended. Hepatic and splenic margins not palpable. MUSCULOSKELETAL: No obvious deformities. No clubbing. No cyanosis. No edema. NEUROLOGICAL: Awake and alert. No obvious cranial nerve deficits. Motor grossly within normal limits. Normal speech. PSYCHIATRIC: Appropriate mood and affect; insight and judgment normal. Course Initial Documented Vital Signs Temperature 98.3 F 10/05/18 09:28 Pulse Rate 73 10/05/18 09:28 Respiratory Rate 18 10/05/18 09:28 Blood Pressure 113/71 10/05/18 09:28 Pulse Oximetry 99 10/05/18 09:28 Last Documented Vital Signs Temperature 98.3 F 10/05/18 09:28 Pulse Rate 73 10/05/18 09:28 Respiratory Rate 18 10/05/18 09:28 Blood Pressure 113/71 10/05/18 09:28 Pulse Oximetry 99 10/05/18 09:28 Medical Decision Making MDM Narrative Medical decision making narrative: Patient is a well-appearing 28-year-old female presenting for psychiatric evaluation under Tsang act. Medical records reviewed. Mental health screening discussed with the patient. Psychiatric screen ordered. We will check chemistry, magnesium, lithium level now. Patient has been cooperative and pleasant since her arrival. She appears very reasonable knowledgeable about her condition. She has no suicidal or homicidal thoughts at this time. Labs reviewed, no acute findings. Patient is medically cleared for psychiatric evaluation Medical Screen Exam Complete: Yes Emergency Medical Condition: Yes Medical Records Medical records reviewed: Yes I reviewed the patient's medical records. Lab Data Lab results reviewed: Yes I reviewed the patient's lab results. Result diagrams: 10/05/18 09:58 Lab Results 10/05/18 10/05/18 10/05/18 Range/Units 09:37 09:58 11:13 Sodium 141 (136-145) meq/L Potassium 4.1 (3.5-5.1) meq/L Chloride 108 H (98-107) meq/L Carbon Dioxide 26.7 (21.0-32.0) meq/L Anion Gap 6 (5-15) meq/L BUN 3 L (7-18) mg/dL Creatinine 0.70 (0.50-1.00) mg/dL Estimated GFR Greater than 89 (>89) mL/min Random Glucose 89 (74-106) mg/dL Calcium 8.6 (8.5-10.1) mg/dL Magnesium 2.2 (1.5-2.5) mg/dL Total Bilirubin 0.3 (0.2-1.0) mg/dL AST 13 L (15-37) U/L ALT 24 (10-53) U/L Alkaline Phosphatase 78 (45-117) U/L Total Protein 7.1 (6.4-8.2) g/dL Albumin 3.8 (3.4-5.0) g/dL Urine Color Straw (Yellw/Straw) Urine Clarity Clear (Clear) Urine pH 6.0 (5.0-8.5) Ur Specific [place] 1.002 (1.002-1.035) Urine Protein Negative (Neg-Trace) mg/dL Urine Glucose (UA) Negative (Negative) mg/dL Urine Ketones Negative (Negative) mg/dL Urine Occult Blood Small H (Negative) Urine Nitrate Negative (Negative) Urine Bilirubin Negative (Negative) Urine Urobilinogen Less than 2 (Less than 2) mg/dL Ur Leukocyte Esterase Negative (Negative) Urine RBC Less than 1 (0-3) /hpf Urine WBC Less than 1 (0-5) /hpf Ur Squamous Epith Cells 2 (0-5) /hpf Urine Bacteria Rare H (None) /hpf Micro UA Comment Culture not ind Ur Microscopic Review Not Reportable Urine Culture Comments Culture not ind [place] Less than 0.1 L (0.5-1.5) meq/L Discharge Plan Discharge Disposition Patient Disposition: ED Admit(ED Internal Use Only) Discharge Condition Condition: Stable Discharge Order Discharge Orders: ED Use Only Admit Order (Routine); Ordered 10/05/18 Ordered By: Campbell Calvert Discharge Details Diagnosis: Schizoaffective disorder Physicians Team ED Provider: Luis Cat ED Midlevel Provider: Alis Schneider Primary Care Provider: Neo Canales Attending Provider: Campbell Calvert Discharge Interventions Interventions: Vital Signs Last Done: 10/05/18 09:28 Status ED Status: Admitted Patient
[2018-10-05 10:22] LABS: Bacteria,Urine Rare /hpf; Bilirubin,Urine Negative (Negative); Clarity,Urine Clear (Clear); Color,Urine Straw (Yellw/Straw); Glucose,Urine (UA) Negative (Negative); Leukocyte Esterase,Urine Negative (Negative); Nitrite,Urine Negative (Negative); Specific Gravity,Urine 1.002 (1.002-1.035); Squamous Epithelial Cell,Urine 2 /hpf (0-5)
[2018-10-05 10:29] LABS: Alanine Aminotransferase 24 U/L (10-53); Albumin 3.8 g/dL (3.4-5.0); Anion Gap 6 meq/L (5-15); Aspartate Aminotransferase 13 U/L (15-37); Blood Urea Nitrogen 3 mg/dL (7-18); Calcium 8.6 mg/dL (8.5-10.1); Carbon Dioxide 26.7 meq/L (21.0-32.0); Chloride 108 meq/L (98-107); Glomerular Filtration Rate Greater Than 89 mL/min (>89); Glucose,Random 89 mg/dL (74-106); Magnesium 2.2 mg/dL (1.5-2.5); Potassium 4.1 meq/L (3.5-5.1); Sodium 141 meq/L (136-145)
[2018-10-05 10:33] LABS: Alkaline Phosphatase 78 U/L (45-117); Total Protein 7.1 g/dL (6.4-8.2)
[2018-10-05] MEDS ORDERED: LORazepam 1 MG Tablet PO PRN (17:08)
[2018-10-05] MEDS ORDERED: Aluminum/Magnesium/Simethacone Susp 30 ML UDC PO PRN (17:08)
[2018-10-05] MEDS ORDERED: Acetaminophen 325 MG Tablet PO PRN (17:08)
[2018-10-06] MEDS ORDERED: FLUoxetine 20 MG Capsule PO SCH (09:00)
--- NOTE | 2018-10-06 13:44 | P.HPPSY ---
Provisional Diagnosis Admission Date: October 05, 2018 16:49 Competence Certification of Person's Competence To Provide Express and Informed Consent I have personally examined Piper Ricardo, a person being served at [facility] on, October 06, 2018 1336. Express and informed consent means consent voluntarily given in writing, by a competent person, after sufficient explanation and disclosure of the subject matter involved to enable the person to make a knowing and willful decision without any element of force, fraud, deceit, duress, or other form of constraint or coercion. This person is 18 years of age or older, is not now known to be incompetent to consent to treatment with a guardian advocate, and does not have a health care surrogate or proxy currently making medical treatment decisions. I have found this person to be one of the following: [X] Competent to provide express and informed consent, as defined above, for voluntary admission to this facility and is competent to provide express and informed consent for treatment. He/she has the consistent capacity to make well reasoned, willful, and knowing decisions concerning his or her medical or mental health treatment. The person fully and consistently understands the purpose of the admission for examination/placement and is fully capable of personally exercising all rights assured under [place] Incompetent to provide express and informed consent to voluntary admission, and this is incompetent to provide express and informed consent to treatment. The person must be transferred to involuntary status and a petition for a guardian advocate filed with the Circuit Court. [] Refusing to provide express and informed consent to voluntary admission but is competent to provide express and informed consent for treatment. The person must be discharged or transferred to involuntary status. Form shall be completed within 24 hours of a person's arrival at the receiving facility and filed in the clinical record of each person: 1. Admitted on a voluntary basis 2. Permitted to provide express and informed consent to his/her own treatment 3. Allowed to transfer from involuntary to voluntary status 4. Prior to permitting a person to consent to his or her own treatment after having been previously found incompetent to consent to treatment. History of Present Illness Capacity: Has capacity Chief Complaint: intrusive thoughts History of Present Illness: Patient is a 28-year-old female admitted to this psychiatric unit Via Tsang act. Patient was recently discharged from psychiatric unit on October 01 , 5 days ago. Patient does not describe any new stressors. She feels that her medications are not working for her. She admits to persistent intrusive thoughts about anything she comes across. As an example, if she sees something fragile she will have thought of her breaking it. Her intrusive thoughts included pedophilia towards no one in particular. She denies any history of any inappropriate contact with children. Patient says she is a big fan of law and order them and has intrusive thoughts that she would do something and get arrested. Other intrusive thoughts include killing her parents, stabbing with a knife. It remains unclear if these thoughts are compulsions or auditory hallucinations. Patient says she had been compliant with her medications. At this time, patient denies suicidal or homicidal ideation plan. Continues to have various fleeting intrusive thoughts. Patient says she is annoyed she has these thoughts because he does not want to act on any of them. Past psych: Patient was discharged from this hospital 5 days ago. Per record she has a psychiatric history of schizoaffective disorder, bulimia, OCD, bipolar disorder, histrionic and borderline personality disorder. Previous medications include lithium 450 mg p.o. twice daily, Zyprexa 5 mg, BuSpar 10 mg 3 times a day, Paxil 10 mg. Past medical: Denies Past Famhx: Denies Past Social: Patient lives with her parents in [place]. She occasionally uses marijuana. She is single and unemployed. She pleaded a bachelor's degree. Patient states she went to a new therapist this morning and when she began discussing her thoughts the therapist then Trinh acted her. Per the Tsang act report patient has thoughts to hit her head with a baseball bat, pedophilia thoughts towards children intrusive in nature, "grand feelings". Woke up having intrusive thoughts to "chop my mom set up", "I am sure I am possessed with the demon". Recent discharge from [facility] on 10/01/18. On 10/03/18 had thoughts of killing parents. Described as "overwhelming feeling energy flow through my hands". She feels dissociated from her body. It goes on to say patient needs to have further evaluation and treatment for depression, ricarda, thoughts of pedophilia working, OCD. - Inpatient Certification I certify that the inpatient services were ordered in accordance with Medicare regulations governing the order. This includes certification that hospital inpatient services are reasonable and necessary and in the case of services not specified as inpatient-only under 42 CFR 419.22(n), that they are appropriately provided as inpatient services in accordance to with the 2-midnight benchmark under 43 CFR 412.3(e) I certify that inpatient psychiatric hospital services are medically necessary. Evaluation and treatment and/or diagnostic testing are expected to improve the patient's condition. The patient needs on a daily basis, active treatment furnished directly by or requiring the supervision of inpatient psychiatric facility personnel. Review of Systems All other systems reviewed negative except as stated in HPI PMFSH - History History Provided By: Patient - Medical History Medical History: Medical History (Last Reviewed 10/06/18 @ 13:43 by Barry Beaulieu DO) Bipolar disorder Delusions Multiple-personality disorder OCD (obsessive compulsive disorder) - Surgical History Surgical History: Surgical History (Last Reviewed 10/05/18 @ 10:22 by CATARINO Douglas) No history of previous surgery - Tobacco History Second Hand Smoke Exposure: No Smoking Status: Never smoker - Alcohol History How Often Do You Have a Drink Containing Alcohol: Monthly or less - Substance Use History Substance History: Past History - Substance Use Type Marijuana Status: Early Remission Route Used: By Mouth, Inhalation Reason for Use: Calm Down Comment: CBD flour and smoking. - Travel History Recent Travel in the [place] Within the Last 8 Weeks: No Recent Travel Out of the Country Within the Last 8 Weeks: No - Immunization History Tetanus Immunization: >5 Years Medications and Allergies Active Medications: Active Medications Acetaminophen (Tylenol) 650 mg PO Q4H PRN PRN Reason: Pain 1-5 or Temp >101F Al Hydrox/Mg Hydrox/Simethicone (Mag-Al Plus Susp Liq) 30 ml PO Q6H PRN PRN Reason: DYSPEPSIA Al Hydroxide/Mg Hydroxide (Milk Of Magnesia Liq) 30 ml PO Q12H PRN PRN Reason: Mild Constipation Buspirone HCl (Buspar) 10 mg PO TID [facility] Last Admin: 10/06/18 10:47 Dose: Not Given Fluoxetine HCl (Prozac) 20 mg PO DAILY [facility] Last Admin: 10/06/18 10:47 Dose: Not Given Hydroxyzine HCl (Atarax) 50 mg PO Q6H PRN PRN Reason: ANXIETY Lorazepam (Ativan) 1 mg PO Q6H PRN PRN Reason: MODERATE TO SEVERE ANXIETY Lorazepam (Ativan Inj) 1 mg IM Q6H PRN PRN Reason: MODERATE TO SEVERE ANXIETY Olanzapine (Zyprexa) 5 mg PO BID [facility] Last Admin: 10/06/18 10:47 Dose: Not Given Allergies Allergy/AdvReac Type Severity Reaction Status Date / Time egg Allergy Unknown Stomach Verified 10/05/18 09:28 Problem Results - Labs CBC & Chem 7: 10/05/18 09:58 Exam Vital signs: Vital Signs 10/05/18 18:52 10/05/18 20:00 10/06/18 06:00 Temperature 97.7 F 98.2 F Pulse Rate 88 81 103 H Respiratory Rate 16 17 18 Blood Pressure 111/64 109/68 106/66 Pulse Oximetry 99 100 98 Intake & Output 10/05/18 10/06/18 10/06/18 18:59 06:59 18:59 Intake Total 720 / 720 Balance 720 / 720 Weight 86.183 kg 85.4 kg Intake: Oral 720 / 720 Other: Weight On Admission 85.4 kg Mental Status Examination Appearance: Appropriate Consciousness: Alert Orientation: x4 Motor Activity: Normal gait Speech: Unremarkable Language: Adequate Fund of Knowledge: Adequate Attention and Concentration: Adequate Memory: Remote (intact) Mood: Anxious Affect: Anxious Thought Process & Associations: Intact Thought Content: Hallucinations, Preoccupations Hallucination Type: Auditory (Intrusive thoughts) Delusion Type: None Suicidal Ideation: No Suicidal Plan: No Suicidal Intention: No Homicidal Ideation: No Homicidal Plan: No Homicidal Intention: No Insight: Poor Judgment: Poor Assessment and Plan - Assessment (1) Unspecified mood [affective] disorder Code(s): F39 - Unspecified mood [affective] disorder Status: Acute (2) OCD (obsessive compulsive disorder) Code(s): F42.9 - Obsessive-compulsive disorder, unspecified Status: Acute (3) Borderline personality disorder Code(s): F60.3 - Borderline personality disorder Status: Acute - Plan Plan: Patient gives consent to increase Prozac to 40 mg daily and Zyprexa to 5 mg a.m. and 10 mg p.o. nightly Justification for Continued Inpatient Stay: Patient would decompensate in a less restrictive setting
[2018-10-06] MEDS: OLANZapine 10 MG Tablet PO SCH (21:02)
[2018-10-07] MEDS: FLUoxetine 20 MG Capsule PO SCH (09:02)
--- NOTE | 2018-10-07 09:19 | P.PNPSY ---
Subjective Chief Complaint: intrusive thoughts Remarks: Reviewed electronic recorded and discussed with nursing staff. Rounded with ILIA Queen. Patient in day room eating breakfast. She states that the intrusive thoughts have decreased. Continues to act like she is preoccupied . She feels that she is sleeping and eating better. She is medication compliant and participating in activities and groups. Staff report that she is cooperative, calm and endorses no suicidal or homicidal ideations. Review of Systems All other systems reviewed negative except as stated in HPI Mental Status Examination Appearance: Appropriate Consciousness: Alert Orientation: x4 Motor Activity: Normal gait Speech: Unremarkable Language: Adequate Fund of Knowledge: Adequate Attention and Concentration: Adequate Memory: Remote (intact) Mood: Appropriate Affect: Appropriate Thought Process & Associations: Intact Thought Content: Preoccupations (with intrusive thoughts ) Hallucination Type: Other (preoccupied ) Delusion Type: None, Paranoid Suicidal Ideation: No Suicidal Plan: No Suicidal Intention: No Homicidal Ideation: No Homicidal Plan: No Homicidal Intention: No Insight: Fair Judgment: Impulsive Assessment and Plan - Assessment (1) Borderline personality disorder Code(s): F60.3 - Borderline personality disorder Status: Acute (2) OCD (obsessive compulsive disorder) Code(s): F42.9 - Obsessive-compulsive disorder, unspecified Status: Acute (3) Unspecified mood [affective] disorder Code(s): F39 - Unspecified mood [affective] disorder Status: Acute - Plan Plan: 10/07/18 continue current treatment plan. 10/06/18 Patient gives consent to increase Prozac to 40 mg daily and Zyprexa to 5 mg a.m. and 10 mg p.o. nightly Justification for Continued Inpatient Stay: Moving patient to a less restrictive environment may result in her decompensation.
[2018-10-07] MEDS: OLANZapine 10 MG Tablet PO SCH (21:41)
[2018-10-08 06:08] VITALS: BP 88/67; PULSE 88; RESP 17; TEMP 97.9; O2SAT 94
[2018-10-08] MEDS: FLUoxetine 20 MG Capsule PO SCH (08:56)
--- NOTE | 2018-10-08 11:15 | P.DSPSY ---
Psychiatry Discharge Summary Inpatient Psychiatric care?: Yes Advance Directives: No Mental Health Advance Directive: No Health Care Proxy: No - Admission Admission Date: October 05, 2018 16:49 Brief History: Patient is a 28-year-old female admitted to this psychiatric unit Via Tsang act. Patient was recently discharged from psychiatric unit on October 01 , 5 days ago. Patient does not describe any new stressors. She feels that her medications are not working for her. She admits to persistent intrusive thoughts about anything she comes across. As an example, if she sees something fragile she will have thought of her breaking it. Her intrusive thoughts included pedophilia towards no one in particular. She denies any history of any inappropriate contact with children. Patient says she is a big fan of law and order them and has intrusive thoughts that she would do something and get arrested. Other intrusive thoughts include killing her parents, stabbing with a knife. It remains unclear if these thoughts are compulsions or auditory hallucinations. Patient says she had been compliant with her medications. At this time, patient denies suicidal or homicidal ideation plan. Continues to have various fleeting intrusive thoughts. Patient says she is annoyed she has these thoughts because he does not want to act on any of them. Past psych: Patient was discharged from this hospital 5 days ago. Per record she has a psychiatric history of schizoaffective disorder, bulimia, OCD, bipolar disorder, histrionic and borderline personality disorder. Previous medications include lithium 450 mg p.o. twice daily, Zyprexa 5 mg, BuSpar 10 mg 3 times a day, Paxil 10 mg. Past medical: Denies Past Famhx: Denies Past Social: Patient lives with her parents in [place]. She occasionally uses marijuana. She is single and unemployed. She pleaded a bachelor's degree. Patient states she went to a new therapist this morning and when she began discussing her thoughts the therapist then Trinh acted her. Per the Tsang act report patient has thoughts to hit her head with a baseball bat, pedophilia thoughts towards children intrusive in nature, "grand feelings". Woke up having intrusive thoughts to "chop my mom set up", "I am sure I am possessed with the demon". Recent discharge from [facility] on 10/01/18. On 10/03/18 had thoughts of killing parents. Described as "overwhelming feeling energy flow through my hands". She feels dissociated from her body. It goes on to say patient needs to have further evaluation and treatment for depression, ricarda, thoughts of pedophilia working, OCD. Tobacco Use In Past 30 Days: No How Often Do You Have a Drink Containing Alcohol: Monthly or less Hospital Course: Course in the hospital: Some clear why the patient was even admitted at this time but she complained that her medications were not working and that she was having intrusive thoughts etc. this is pretty much the same complaints that she was having when discharged 5 days ago. Course in the hospital remarkably changed the patient so that she now has no complaints. - Discharge Discharge Date: 10/08/18 Borderline personality disorder Discharge Disposition: Home - Discharge Instructions Discharge Diet: Regular Diet Activities You Can Perform: Regular- No Restrictions - Discharge Time > 30 minutes Mental Status Examination Appearance: Appropriate Consciousness: Alert Orientation: x4 Motor Activity: Normal gait Speech: Unremarkable Language: Adequate Fund of Knowledge: Adequate Attention and Concentration: Adequate Memory: Remote (intact) Mood: Appropriate Affect: Appropriate Thought Process & Associations: Intact Thought Content: Preoccupations (with intrusive thoughts ) Hallucination Type: Other (preoccupied ) Delusion Type: None, Paranoid Suicidal Ideation: No Suicidal Plan: No Suicidal Intention: No Homicidal Ideation: No Homicidal Plan: No Homicidal Intention: No Insight: Fair Judgment: Impulsive Discharge/Advance Care Plan - Results Vital Signs: Last Vital Signs Temp 97.9 F 10/08/18 06:00 Pulse 88 10/08/18 06:00 Resp 17 10/08/18 06:00 BP 88/67 L 10/08/18 06:00 Pulse Ox 94 L 10/08/18 06:00 Lab Results: Laboratory Results Urine Culture Comments Culture not ind 10/05/18 09:37 [place] Less than 0.1 meq/L (0.5-1.5) L 10/05/18 11:13 Summary of Procedures: None Pending Results: None - Medications Number of antipsychotic medications at discharge: 1 - Discharge Care Plan Goals to Promote Your Health: * To prevent worsening of your condition and complications * To maintain your health at the optimal level Directions to Meet Your Goals: Take your medications as prescribed Follow your dietary instruction Follow activity as directed Keep your appointments as scheduled Take your immunizations and boosters as scheduled If your symptoms worsen call your PCP, if no PCP go to Urgent Care Center or Emergency Room For 13/03 questions related to your inpatient stay or results of tests pending at discharge, please contact Dr. Satish Chung MD at Smoking is Dangerous to Your Health. Avoid second hand smoking
== END 2018-10-08 11:20 | disposition home or self-care (01) | DRG 885 ==
LOC: NEPD 09:08 → NEDA 16:49 → H260 19:16
PROVIDERS: ADMIT Psychiatry & Neurology Child & Adolescent Psychiatry; ATTEND Psychiatry & Neurology Child & Adolescent Psychiatry